=== PATIENT | female | born 1980 | race Caucasian/White ===

== ENCOUNTER → 2020-08-13 10:18 | Outpatient (CLI) | payer OTHER, SELFPAY ==
[2020-08-12 12:33] VITALS: BMI 25.6
== END ==
LOC: MTDU 10:18
PROVIDERS: Referring Provider Physician Assistant; Visit Provider Physician Assistant
DX: J02.9 Acute pharyngitis, unspecified (principal); R05 Cough; R06.02 Shortness of breath; R51.9 Headache, unspecified; R68.83 Chills (without fever); M79.10 Myalgia, unspecified site; R53.83 Other fatigue; Z20.828 Contact with and (suspected) exposure to other viral communicable diseases
CPT/HCPCS: 87635; C9803; U0003

== ENCOUNTER 2025-08-17 15:03 | Emergency (ER) | payer OTHER, SELFPAY ==
[2025-08-17 15:04] VITALS: BP 141/120; PULSE 83; RESP 16; TEMP 37.1; O2SAT 94; BMI 24.3
--- NOTE | 2025-08-17 15:26 | EDS_ITS ---
HPI History of Present Illness Chief Complaint: Bite Narrative Narrative: Patient is a 45-year-old female presenting to the emergency department for cat bite. Patient states that Wednesday evening a "community cat" that sleeps in her bed when it's cold was playing and bit her left index finger. She states that the cat is UTD on vaccinations. She states last night she went to an where they started her on Augmentin and updated her tetanus. She states she has had chills and intermittent nausea. She denies fevers. Denies any other injuries. She states she has taken 3 doses of Augmentin. They halie a line around the area of erythema last night and since then it has went slightly outside the lines which prompted her to return. Xray was ordered outpatient and she had this done prior to her arrival to the ED today. [facility] Medical History (Updated 08/17/25 @ 16:[address] Yun Daugherty MD) Presence of bilateral breast implant HTN (hypertension) Home Medications Medication Instructions Recorded Last Taken Type NK 08/12/20 Unknown History Allergy/AdvReac Type Severity Reaction Status Date / Time No Known Allergies Allergy Verified 08/17/25 15:09 Surgical History (Updated 08/17/25 @ 15:38 by Felix Russell) History of partial hysterectomy Social History Smoking Status: Current every day smoker tobacco type: cigarettes ROS ROS ED ROS Narrative see HPI EXAM Physical Exam Narrative Exam Narrative: Vital signs: Reviewed General: Alert and orientedx3. No acute distress. Nontoxic appearing. HEENT: Head is normocephalic and atraumatic, sinuses nontender, pupils equal round and reactive. Nares are patent. Oropharynx and throat exams normal. Neck: Supple without lymphadenopathy nontender Cardiovascular: Regular rate and rhythm, no murmurs. No rubs or gallops. Normal S1 and S2 Respiratory: Clear to auscultation bilaterally. No wheezes, rales, rhonchi Chest: No tracking of the erythema up into the axillary or chest wall. Abdominal: Soft and nontender. Normal bowel sounds. No guarding or rebound. Nonsurgical abdomen Extremities: No bruising. Normal range of motion. Normal sensation. Skin: There is 1 cm circular wound of erythema and small amount of purulence to the dorsal ulnar portion of the left index finger towards the base of the finger. No fluctuance of the wound. There is no tenderness to palpation of the flexor tendon. Patient is able to fully extend and flex the left index finger. No significant swelling of the finger to suggest flexor tenosynovitis. There is tracking of the erythema and warmth up from the dorsal radial portion of the left hand up to the mid inner upper arm. There is about 1 cm of erythema outside of the marked lines that were marked yesterday evening at . The rest of the physical exam is unremarkable Const Vital Signs: 08/17/25 15:04 08/17/25 16:08 08/17/25 16:37 Temperature 98.7 F 98.2 F 98.2 F Temperature Source Oral Oral Pulse Rate 83 72 70 Respiratory Rate 16 14 14 Blood Pressure 141/120 H 126/86 H 126/67 H Blood Pressure Mean 127 99 86 Pulse Ox 94 91 100 Oxygen Delivery Method Room Air MDM MDM MDM Narrative Medical decision making narrative: Patient is a 45-year-old female presenting to the emergency department for a cat bite 2 days ago. Patient was seen and examined. Vitals are stable. Patient resting bed comfortably no acute distress. Patient's tetanus was updated last evening. She has only been on 24 hours of antibiotics. Would not consider this failure of outpatient treatment at this time. She has no signs of flexor tenosynovitis. Negative [place] signs. X-ray was reviewed from earlier today and shows no foreign body or fracture. Radiology read with soft tissue swelling. No radiopaque foreign body is seen. Patient given IV bolus of Unasyn here. Lab work obtained. The patient is nontoxic appearing. Do not think she is septic. CBC with no leukocytosis and stable. BMP with no significant abnormalities. Lactate within normal limits. Patient was reevaluated about 1.5 hours from arrival. Area of erythema has not extended outside the pen lines any further. Patient updated on the negative labs. Explained that cat bites can progress fairly quickly and using shared decision making patient does feel comfortable going home, states this is what she prefers. She has only been on 24 hours of abx, I do not think she has failed outpatient therapy at this time. Patient was given strict return precautions if she develops any worsening of the erythema outside the lines, fever, chills, nausea, vomiting, feeling unwell or swelling or difficulty moving her finger. Patient is agreeable with the plan. Patient discharged from the Emergency Department. I do not feel that the patient's evaluation reveals any acute reason for admission at this time. I instructed them to either follow-up with their primary care physician or promptly return to the Emergency Department for reevaluation should symptoms worsen or new symptoms develop. I explained what symptoms would indicate the need to return to the emergency department. Shared decision making was used. The patient voiced understanding of the treatment plan and is agreeable with it. Clinical impression Cat bite Cellulitis History & Record Review Discussion w/independent historian: Patient Lab Data Attestation: I reviewed the patient's lab results. Labs: Laboratory Results - last 24 hr 08/17/25 15:32 WBC 8.5 RBC 4.17 L Hgb 13.1 Hct 38.4 MCV 92.1 MCH 31.4 MCHC 34.1 RDW Std Deviation 44.6 H RDW Coeff of Hanna 13.1 Plt Count 360 MPV 9.7 Immature Gran % (Auto) 0.200 Neut % (Auto) 59.0 Lymph % (Auto) 26.9 [place] % (Auto) 11.5 H Eos % (Auto) 1.6 Baso % (Auto) 0.8 Absolute Neuts (auto) 5.0 Absolute Lymphs (auto) 2.30 Nucleated RBC % 0 Sodium 137 Potassium 4.3 Chloride 102 Carbon Dioxide 26.1 Anion Gap 9 BUN 11 Creatinine 0.60 L Estim Creat Clear Calc 103.32 Est GFR (MDRD) Non-Af 113 BUN/Creatinine Ratio 18.1 Glucose 85 Lactic Acid < 1.0 Calcium 9.8 Discharge Plan Triage Chief Complaint: Bite ED Provider: Yun Daugherty Dx/Rx/DC Orders Clinical Impression: Cat bite, Cellulitis Instructions: Cellulitis Dc, ED Cat Bite Prescriptions: No Action NK Primary Care Provider: Care Physician,No Primary Referrals: Miguel Rios MD [Med Staff - Active Staff, Family Practice] - As soon as possible Care Physician,No Primary [Primary Care Provider, Medical] Activity Restrictions/Additional Instructions: As discussed, take your antibiotics as prescribed. If the redness extends outside of the lines that were drawn you need to return to the emergency department. If you develop fever, chills, nausea, vomiting, feeling unwell you need to return. If you develop any significant swelling of your finger or difficulty bending or extending your finger you need to return as discussed as well. Your evaluation in the Emergency Department did not reveal any acute reason for admission. However, I want to emphasize that you may be early in the course of a disease process or illness even if it is not present. For this reason you should follow-up within 24 hours for reevaluation with either your primary care physician or if necessary back here in the Emergency Department. You should return to the Emergency Department immediately if your symptoms worsen or new symptoms develop. Print Language: Amharic Disposition Disposition: Home, Self Care
[2025-08-17] MEDS: Ampicillin/Sulbactam 3 GM in 0.9% Normal Saline (100mL MB+) 100 ML IV (15:53)
[2025-08-17 15:57] LABS: Anion Gap 9 (5-15); BUN 11 mg/dL (4-19); BUN/Creat Ratio 18.1 RATIO (10-20); Calcium,Total 9.8 mg/dL (7.6-11.0); Carbon Dioxide 26.1 mmol/L (21.0-32.0); Chloride 102 mmol/L (98-108); Estimated Creatinine Clearance 103.32 ml/min (50-250); Glucose 85 mg/dL (70-99); Potassium 4.3 mmol/L (3.3-5.1)
[2025-08-17 16:03] LABS: Hematocrit 38.4 % (37-47); Hemoglobin 13.1 g/dL (12.0-15.0); Immature Granulocytes Count 0.020 X10^3/uL (0.0-0.0); Mean Corp Hgb Conc 34.1 g/dL (32-36); Mean Corpuscular Volume 92.1 fL (81-99); Mean Platelet Vol. 9.7 fl (6.2-12.0); NRBC Flagged by Analyzer 0 % (0-5); Platelet Count 360 K/mm3 (150-450); RBC Distribution Width CV 13.1 % (11.6-14.6); RBC Distribution Width SD 44.6 fl (35.1-43.9); Red Blood Count 4.17 M/mm3 (4.2-5.4); White Blood Count 8.5 K/mm3 (4.4-11.0)
[2025-08-17 16:08] VITALS: BP 126/86; PULSE 72; RESP 14; TEMP 36.8; O2SAT 91
[2025-08-17 16:37] VITALS: BP 126/67; PULSE 70; RESP 14; TEMP 36.8; O2SAT 100
--- OUTSIDE RECORDS SUMMARY | 2025-08-17 17:50 | XMS RPT_ITS | CCD ---
Author Organization [facility] Inform ion Partnership [facility] Care Team Providers Care Linux Security Administrator Name Role Phone RULA BOUDREAUX, ABENA Primary Care Physician MENDEZ REYEZ, DR TITUS Monroy Attending Unavailabl e ABENA TERAN Primary Care Unavail able ABENA TERAN Primary Care Unavail able KB NUNEZ DO Attending Unavailable LOUIS CARRIZALES Admitting Unavaila ble Medications Current Medications Medication Drug Class(es) Dates Sig (Normalized) Sig (Original) Azithromycin 5 Day Dose Pack 250 mg oral tablet (2 sources) Start: 09-04-2024 End: 09-09-2024 Azithromycin 5 Day Dose Pack 250 mg oral tablet Take two (2) tablets day 1-then one (1) tablet, Oral, Daily, X 5 day(s), # 6 tab(s), 0 Refill(s), 09/09/24 3:11:00 PM EST, 66.5 Start Date: 09/04/24 Stop Date: 09/09/24 Status: Ordered Start: 05-26-2024 End: 05-31-2024 take 1 tablet by mouth once daily Azithromycin 5 Day Dose Pack 250 mg oral tablet 1 dose, Oral, Daily, X 5 day(s), # 6 tab(s), 0 Refill(s), 05/31/24 1:55:00 PM EDT, 64 Start Date: 05/26/24 Stop Date: 05/31/24 Status: Ordered buprenorphine 8 mg / naloxone 2 mg sublingual film (1 source) Partial Opioid Agonist, Opioid Antagonist Start: 09-04-2024 buprenorphine-naloxo ne 8 mg-2 mg sublingual film dissolve 1 and 1/2 FILMS under the tongue once daily for 30 DAYS Start Date: 09/04/24 Status: Ordered 12 hr guaiFENesin 600 mg extended release oral tablet (1 source) Start: 05-26-2024 End: 06-02-2024 Mucinex 600 mg oral tablet, extended release Dose : 600 mg = 1 tab(s), Oral, q12h, X 7 day(s), # 14 tab(s), 0 Refill(s), 06/02/24 1:55:00 PM EDT Start Date: 05/26/24 Stop Date: 06/02/24 Status: Ordered Problems Problem Classification Problem Date Documented Da te Episodic/Chronic Chronic obstructive pulmonary disease and bronchiectasis (1 source) Bronchitis; Translations: [Bronchitis, not specified as acute or chronic] Onset: 05-26-2024 Episodic Residual codes; unclassified (1 source) Tobacco user; Translations: [Tobacco use] Onset: 09-05-2024 Episodic Respiratory failure; insufficiency; arrest (adult) (1 source) Acute respiratory failure; Translations: [Acute respiratory failure with hypoxia] Onset: 09-05-2024 Episodic Results Test Name Value Interpretation Reference Range [facility] 09-11-2024 Mycoplasma IgG Negative Normal [facility] Comment on above: Result Comment: INTE RPRETATION OF MYCOPLASMA IgG BY EIA: Negative: No detectable M. pneumoniae IgG antibody. Positive: Mycoplasma pneumoniae IgG antibody Detected. Equivocal: Equivocal for IgG antibodies to Mycoplasma pneumoniae. Suggest repeat testing in 10-14 days. Performed By: #### M YCO ####[address] 09-06-2024 Mycoplasma IgM Negative Normal [facility] Comment on above: Result Comment: INTE RPRETATION OF MYCOPLASMA IgM: Negative: IgM to M. pneumoniae Absent, or at levels below the assay limit of detection. Positive: IgM to M. pneumoniae Present. Invalid: Test results are invalid due to invalid internal control. Assay was performed in duplicate. Repeat testing is suggested if clinically indicated. Performed By: #### M YCO ####[address] [address] RESCVIDon 09-05-2024 Adenovirus Not detected Normal Not Detected [facility] Comment on above: Performed By: #### R ESCVID #### [address] [address] Bordetella Parapertussis Not detected Normal Not Detected [facility] Comment on above: Performed By: #### R ESCVID #### [facility] [address] [place] [address] Bordetella Pertussis Not detected Normal Not Detected [facility] Comment on above: Performed By: #### R ESCVID #### [facility] [address] [place] [address] Chlamydophila pneumoniae Not detected Normal Not Detected [facility] Comment on above: Performed By: #### R ESCVID #### [facility] [address] [place] [address] Coronavirus 229E (Not COVID-19) Not detected Normal Not Detected [facility] Comment on above: Performed By: #### R ESCVID #### [facility] [address] [place] [phone] Coronavirus HKU1 (Not COVID-19) Not detected Normal Not Detected [facility] Comment on above: Performed By: #### R ESCVID #### [facility] [address] [place] [address] Coronavirus NL63 (Not COVID-19) Not detected Normal Not Detected [facility] Comment on above: Performed By: #### R ESCVID #### [facility] [address] [place] [address] Coronavirus OC43 (Not COVID-19) Not detected Normal Not Detected [facility] Comment on above: Performed By: #### R ESCVID #### [facility] [address] [place] [address] Human Metapneumovirus Not detected Normal Not Detected [facility] Comment on above: Performed By: #### R ESCVID #### [facility] [address] [place] [address] Influenza A Not detected Normal Not Detected [facility] Comment on above: Performed By: #### R ESCVID #### [facility] [address] [place] [address] Influenza B Not detected Normal Not Detected [facility] Comment on above: Performed By: #### R ESCVID #### [facility] [address] [place] [address] Mycoplasma pneumoniae Not detected Normal Not Detected [facility] Comment on above: Performed By: #### R ESCVID #### [facility] [address] [place] [address] Parainfluenza 1 Not detected Normal Not Detected [facility] Comment on above: Performed By: #### R ESCVID #### [facility] [address] [place], [place] [id number] Parainfluenza 2 Not detected Normal Not Detected [facility] Comment on above: Performed By: #### R ESCVID #### [facility] [address] [place] [address] Parainfluenza 3 Not detected Normal Not Detected [facility] Comment on above: Performed By: #### R ESCVID #### [facility] [address] [place] [address] Parainfluenza 4 Not detected Normal Not Detected [facility] Comment on above: Performed By: #### R ESCVID #### [facility] [address] [place] [address] Respiratory Syncytial Virus Not detected Normal Not Detected [facility] Comment on above: Performed By: #### R ESCVID #### [facility] [address] [place], [place] [id number] Rhinovirus/Enteroviru s Not detected Normal Not Detected [facility] Comment on above: Performed By: #### R ESCVID #### [facility] [address] [place], [place] [id number] SARS-CoV-2 (COVID-19) RNA AYESHA+probe Ql (Unsp spec) Not detected Normal Not Detected [facility] Comment on above: Result Comment: This assay has been validated in the [facility] for use with nasopharyngeal specimens in [facility]. If a non-validated specimen or test collection method was used, please interpret the results with caution, especially if the test result is negative. A positive test result for COVID-19 indicates that RNA from SARS-CoV-2 was detected, and the patient is infected with the virus and presumed to be contagious. Laboratory test results should always be considered in the context of clinical observations and epidemiological data in making a final diagnosis and patient management decisions. Patient management should follow current CDC guidelines. A negative test result for this test means that SARS-CoV-2 RNA was not present in the specimen above the limit of detection. However, a negative result does not rule out COVID-19 and should not be used as the sole basis for treatment or patient management decisions. A negative result does not exclude the possibility of COVID-19. When diagnostic testing is negative, the possibility of a false negative result should be considered in the context of a patient's recent exposures and the presence of clinical signs and symptoms consistent with COVID-19. The possibility of a false negative result should especially be considered if the patient?s recent exposures or clinical presentation indicate that COVID-19 is likely, and diagnostic tests for other causes of illness (e.g., other respiratory illness) are negative. If COVID-19 is still suspected based on exposure history together with other clinical findings, re-testing should be considered by healthcare providers in consultation with public health authorities. Performed By: #### R ESCVID #### [address] [address] .Auto Diffon 09-04-2024 Basophil, Absolute 0.1 10 3/mcL Normal 0.0-0.2 [facility] Comment on above: Performed By: #### M ORPH, CBC, MDW, GFR, BMP, LAC, ADIFF, ANEU #### [address] [address] Basophils/100 WBC (Bld) 0.8 % Normal 0.0-2.5 [facility] Comment on above: Performed By: #### M ORPH, CBC, MDW, GFR, BMP, LAC, ADIFF, ANEU #### [address] [address] Eosinophil, Absolute 0.1 10 3/mcL Normal 0.0-0.7 [facility] Comment on above: Performed By: #### M ORPH, CBC, MDW, GFR, BMP, LAC, ADIFF, ANEU #### [address] [address] Eosinophils/100 WBC (Bld) 0.4 % Normal 0.0-7.0 [facility] Comment on above: Performed By: #### M ORPH, CBC, MDW, GFR, BMP, LAC, ADIFF, ANEU #### [address] [address] Lymphocyte, Absolute 2.0 10 3/mcL Normal 0.9-4.3 [facility] Comment on above: Performed By: #### M ORPH, CBC, MDW, GFR, BMP, LAC, ADIFF, ANEU #### [address] [address] Lymphocytes/100 WBC (Bld) 12.3 % Low 20.0-40.0 [facility] Comment on above: Performed By: #### M ORPH, CBC, MDW, GFR, BMP, LAC, ADIFF, ANEU #### [address] [address] Monocyte, Absolute 1.6 10 3/mcL High 0.1-1.4 [facility] Comment on above: Performed By: #### M ORPH, CBC, MDW, GFR, BMP, LAC, ADIFF, ANEU #### [address] [address] Monocytes/100 WBC (Bld) 9.9 % Normal 2.0-13.0 [facility] Comment on above: Performed By: #### M ORPH, CBC, MDW, GFR, BMP, LAC, ADIFF, ANEU #### [address] [address] Neutrophils/100 WBC (Bld) 76.6 % High 50.0-75.0 [facility] Comment on above: Performed By: #### M ORPH, CBC, MDW, GFR, BMP, LAC, ADIFF, ANEU #### [address] [address] .GFRon 09-04-2024 GFR 121 ml/min/1.73sqm Normal [facility] Comment on above: Result Comment: GFR Population mean for , Non- Americans Ages 20-29 = 116 mL/min/1.73 sq.m. Ages 30-39 = 107 mL/min/1.73 sq.m. Ages 40-49 = 99 mL/min/1.73 sq.m. Ages 50-59 = 93 mL/min/1.73 sq.m. Ages 60-69 = 85 mL/min/1.73 sq.m. Ages 70+ = 75 mL/min/1.73 sq.m. Chronic Kidney Disease: Less than 60 mL/min/1.73 square meters End Stage Renal Disease: Less than 15 mL/min/1.73 square meters Performed By: #### M ORPH, CBC, MDW, GFR, BMP, LAC, ADIFF, ANEU #### [place] [address] [place], [place] [address] GFR Non- 99 ml/min/1.73sqm Normal [facility] Comment on above: Result Comment: GFR Population mean for , Non- Americans Ages 20-29 = 116 mL/min/1.73 sq.m. Ages 30-39 = 107 mL/min/1.73 sq.m. Ages 40-49 = 99 mL/min/1.73 sq.m. Ages 50-59 = 93 mL/min/1.73 sq.m. Ages 60-69 = 85 mL/min/1.73 sq.m. Ages 70+ = 75 mL/min/1.73 sq.m. Chronic Kidney Disease: Less than 60 mL/min/1.73 square meters End Stage Renal Disease: Less than 15 mL/min/1.73 square meters Performed By: #### M ORPH, CBC, MDW, GFR, BMP, LAC, ADIFF, ANEU #### [address] [place] [place], [place] [address] .MDWon 09-04-2024 Monocyte Distribution Width 22.11 High 0.00-20.00 [facility] Comment on above: Result Comment: For adults in ED, MDW>20.0 may be associated with a higher risk of sepsis during the first 12hrs of hospital admission The predictive value of MDW for identifying sepsis in patients with hematological abnormalities has not been established Performed By: #### M ORPH, CBC, MDW, GFR, BMP, LAC, ADIFF, ANEU ####[address] [address] .Morphon 09-04-2024 Platelet Estimate Normal Normal [facility] Comment on above: Performed By: #### M ORPH, CBC, MDW, GFR, BMP, LAC, ADIFF, ANEU #### [place] [address] RBC morphology finding Nom (Bld) Normal Normal [facility] Comment on above: Performed By: #### M ORPH, CBC, MDW, GFR, BMP, LAC, ADIFF, ANEU #### [place] [address] .NEUABSon 09-04-2024 Neutrophil, Absolute 12.3 10 3/mcL High 2.3-8.1 [facility] Comment on above: Performed By: #### M ORPH, CBC, MDW, GFR, BMP, LAC, ADIFF, ANEU ####[place] [id number] BMPon 09-04-2024 BUN/Creatinine Ratio 15 ratio Normal 7-27 [facility] Comment on above: Performed By: #### M ORPH, CBC, MDW, GFR, BMP, LAC, ADIFF, ANEU #### [address] [address] Calcium [Mass/Vol] 9.6 mg/dL Normal 8.4-10.2 [facility] Comment on above: Performed By: #### M ORPH, CBC, MDW, GFR, BMP, LAC, ADIFF, ANEU #### [place] [phone] Chloride [Moles/Vol] 95 mmol/L Low 98-107 [facility] Comment on above: Performed By: #### M ORPH, CBC, MDW, GFR, BMP, LAC, ADIFF, ANEU #### [place] [phone] CO2 [Moles/Vol] 28 mmol/L Normal 22-29 [facility] Comment on above: Performed By: #### M ORPH, CBC, MDW, GFR, BMP, LAC, ADIFF, ANEU #### [address] [address] Creatinine [Mass/Vol] 0.65 mg/dL Normal 0.55-1.02 [facility] Comment on above: Result Comment: Test ing performed on Siemens Dimension EXL analyzer using a modified kinetic Silvia technique. Performed By: #### M ORPH, CBC, MDW, GFR, BMP, LAC, ADIFF, ANEU #### [address] [address] Electrolyte Balance 14.0 mEq/L Normal 4.0-15.0 [facility] Comment on above: Performed By: #### M ORPH, CBC, MDW, GFR, BMP, LAC, ADIFF, ANEU #### [place] [address] Glucose [Mass/Vol] 110 mg/dL High 70-105 [facility] Comment on above: Performed By: #### M ORPH, CBC, MDW, GFR, BMP, LAC, ADIFF, ANEU #### [address] [address] Potassium [Moles/Vol] 3.8 mmol/L Normal 3.5-5.1 [facility] Comment on above: Performed By: #### M ORPH, CBC, MDW, GFR, BMP, LAC, ADIFF, ANEU #### [address] [address] Sodium [Moles/Vol] 137 mmol/L Normal 136-145 [facility] Comment on above: Performed By: #### M ORPH, CBC, MDW, GFR, BMP, LAC, ADIFF, ANEU #### [place] [address] Urea nitrogen [Mass/Vol] 10 mg/dL Normal 7-18 [facility] Comment on above: Performed By: #### M ORPH, CBC, MDW, GFR, BMP, LAC, ADIFF, ANEU #### [address] [address] CBCon 09-04-2024 Erythrocyte distribution width (RBC) [Ratio] 13.6 % Normal 11.5-15.5 [facility] Comment on above: Performed By: #### M ORPH, CBC, MDW, GFR, BMP, LAC, ADIFF, ANEU #### [place] [address] Hematocrit (Bld) [Volume fraction] 40.2 % Normal 34.0-46.0 [facility] Comment on above: Performed By: #### M ORPH, CBC, MDW, GFR, BMP, LAC, ADIFF, ANEU #### [place] [address] Hgb 13.4 G/dL Normal 12.0-16.0 [facility] Comment on above: Performed By: #### M ORPH, CBC, MDW, GFR, BMP, LAC, ADIFF, ANEU #### [place] [address] MCH (RBC) [Entitic mass] 31.2 pg Normal 27.0-33.0 [facility] Comment on above: Performed By: #### M ORPH, CBC, MDW, GFR, BMP, LAC, ADIFF, ANEU #### [place] [address] MCHC 33.4 G/dL Normal 32.0-36.0 [facility] Comment on above: Performed By: #### M ORPH, CBC, MDW, GFR, BMP, LAC, ADIFF, ANEU #### [place] [address] MCV (RBC) [Entitic vol] 93.4 fL Normal 80.0-99.0 [facility] Comment on above: Performed By: #### M ORPH, CBC, MDW, GFR, BMP, LAC, ADIFF, ANEU #### [place] [address] Platelet 417 10 3/mcL Normal 150-450 [facility] Comment on above: Performed By: #### M ORPH, CBC, MDW, GFR, BMP, LAC, ADIFF, ANEU #### [place] [address] Platelet mean volume (Bld) [Entitic vol] 7.9 fL Normal 6.6-10.5 [facility] Comment on above: Performed By: #### M ORPH, CBC, MDW, GFR, BMP, LAC, ADIFF, ANEU #### [place] [address] RBC 4.30 10 6/mcL Normal 4.10-5.30 [facility] Comment on above: Performed By: #### M ORPH, CBC, MDW, GFR, BMP, LAC, ADIFF, ANEU #### [place] [address] WBC 16.0 10 3/mcL High 4.5-10.8 [facility] Comment on above: Performed By: #### M ORPH, CBC, MDW, GFR, BMP, LAC, ADIFF, ANEU #### [place] [address] CVFLURVon 09-04-2024 FLU A PCR Negative Normal Negative [facility] Comment on above: Performed By: #### C VFLURV ####[place] [address] FLU B PCR Negative Normal Negative [facility] Comment on above: Performed By: #### C VFLURV ####[place] [address] RSV PCR Negative Normal Negative [facility] Comment on above: Performed By: #### C VFLURV ####[place] [address] SARS-CoV-2 (COVID-19) RNA AYESHA+probe Ql (Unsp spec) Negative Normal Negative [facility] Comment on above: Result Comment: Resu lts from the Xpert Xpress CoV-2/Flu/RSV plus test should be correlated with the clinical history, epidemiological data, and other data available to the clinical evaluating the patient. Performance of the Xpert Xpress CoV-2/Flu/RSV plus test has only been established in nasopharyngeal swab specimen. Erroneous test results might occur from improper specimen collection, failure to follow the recommended sample collection, handling and storage procedures, technical error, or sample mix-up. False negative results may occur if a virus is present at a level below the analytical limit of detection. Viral nucleic acid may persist in vivo, independent of virus viability. Detection of analyte target(s) does not imply that the corresponding virus(es) are infectious or are the causative agents for clinical symptoms. Recent patient exposure to FluMist or other live attenuated influenza vaccines may cause inaccurate positive results. Performed By: #### C VFLURV ####[id number] [place], [place] [address] LABORATORYOrdered By: Luke Aldridge on 09-04-2024 Adenovirus DNA AYESHA+non-probe Ql (Nph) Not Detected *NA* (09/04/24 5:32 PM) Invalid Interpretation Code Not Detected AH Auto Viro/Sero SS B. parapertussis [id number] DNA AYESHA+non-probe Ql (Nph) Not Detected *NA* (09/04/24 5:32 PM) Invalid Interpretation Code Not Detected AH Auto Viro/Sero SS B. pertussis toxin promoter region AYESHA+non-probe Ql (Nph) Not Detected *NA* (09/04/24 5:32 PM) Invalid Interpretation Code Not Detected AH Auto Viro/Sero SS C. pneumoniae DNA AYESHA+non-probe Ql (Nph) Not Detected *NA* (09/04/24 5:32 PM) Invalid Interpretation Code Not Detected AH Auto Viro/Sero SS FLUAV RNA AYESHA+non-probe Ql (Nph) Not Detected *NA* (09/04/24 5:32 PM) Invalid Interpretation Code Not Detected AH Auto Viro/Sero SS FLUBV RNA AYESHA+non-probe Ql (Nph) Not Detected *NA* (09/04/24 5:32 PM) Invalid Interpretation Code Not Detected AH Auto Viro/Sero SS hMPV RNA AYESHA+non-probe Ql (Nph) Not Detected *NA* (09/04/24 5:32 PM) Invalid Interpretation Code Not Detected AH Auto Viro/Sero SS M. pneumoniae DNA AYESHA+non-probe Ql (Nph) Not Detected *NA* (09/04/24 5:32 PM) Invalid Interpretation Code Not Detected AH Auto Viro/Sero SS Parainfluenza virus 1 RNA AYESHA+non-probe Ql (Nph) Not Detected *NA* (09/04/24 5:32 PM) Invalid Interpretation Code Not Detected AH Auto Viro/Sero SS Parainfluenza virus 2 RNA AYESHA+non-probe Ql (Nph) Not Detected *NA* (09/04/24 5:32 PM) Invalid Interpretation Code Not Detected AH Auto Viro/Sero SS Parainfluenza virus 3 RNA AYESHA+non-probe Ql (Nph) Not Detected *NA* (09/04/24 5:32 PM) Invalid Interpretation Code Not Detected AH Auto Viro/Sero SS Parainfluenza virus 4 RNA AYESHA+non-probe Ql (Nph) Not Detected *NA* (09/04/24 5:32 PM) Invalid Interpretation Code Not Detected AH Auto Viro/Sero SS Rhinovirus+Enteroviru s RNA AYESHA+non-probe Ql (Nph) Not Detected *NA* (09/04/24 5:32 PM) Invalid Interpretation Code Not Detected AH Auto Viro/Sero SS RSV RNA AYESHA+non-probe Ql (Nph) Not Detected *NA* (09/04/24 5:32 PM) Invalid Interpretation Code Not Detected AH Auto Viro/Sero SS SARS-CoV-2 (COVID-19) RNA AYESHA+probe Ql (Resp) Not Detected 3 *NA* (09/04/24 5:32 PM) Invalid Interpretation Code Not Detected AH Auto Viro/Sero SS Comment on above: Interpretive Data: T his assay has been validated in the [facility] for use with nasopharyngeal specimens in [facility]. If a non-validated specimen or test collection method was used, please interpret the results with caution, especially if the test result is negative. A positive test result for COVID-19 indicates that RNA from SARS-CoV-2 was detected, and the patient is infected with the virus and presumed to be contagious. Laboratory test results should always be considered in the context of clinical observations and epidemiological data in making a final diagnosis and patient management decisions. Patient management should follow current CDC guidelines. A negative test result for this test means that SARS-CoV-2 RNA was not present in the specimen above the limit of detection. However, a negative result does not rule out COVID-19 and should not be used as the sole basis for treatment or patient management decisions. A negative result does not exclude the possibility of COVID-19. When diagnostic testing is negative, the possibility of a false negative result should be considered in the context of a patient's recent exposures and the presence of clinical signs and symptoms consistent with COVID-19. The possibility of a false negative result should especially be considered if the patient s recent exposures or clinical presentation indicate that COVID-19 is likely, and diagnostic tests for other causes of illness (e.g., other respiratory illness) are negative. If COVID-19 is still suspected based on exposure history together with other clinical findings, re-testing should be considered by healthcare providers in consultation with public health authorities. LABORATORYOrdered By: SYSTEM SYSTEM on 09-04-2024 Basophils (Bld) [#/Vol] 0.1 103/mcL Normal 0.0 - 0.2 10^3/mcL AO Workflow SS Basophils/100 WBC (Bld) 0.8 % Normal 0.0 - 2.5 % AO Workflow SS Calcium [Mass/Vol] 9.6 mg/dL Normal 8.4 - 10. 2 mg/dL AO ADM SS Chloride [Moles/Vol] 95 mmol/L Low 98 - 10 7 mmol/L AO ADM SS CO2 [Moles/Vol] 28 mmol/L Normal 22 - 29 mmol/L AO ADM SS Creatinine [Mass/Vol] 0.65 mg/dL Normal 0.55 - 1.02 mg/dL AO ADM SS Comment on above: Interpretive Data: T esting performed on Siemens Dimension EXL analyzer using a modified kinetic Silvia technique. Electrolyte Balance 14.0 mEq/L Normal 4.0 - 15 .0 mEq/L AO ADM SS Eosinophil, Absolute 0.1 103/mcL Normal 0.0 - 0 .7 10^3/mcL AO Workflow SS Eosinophils/100 WBC (Bld) 0.4 % Normal 0.0 - 7.0 % AO Workflow SS Erythrocyte distribution width (RBC) [Ratio] 13.6 % Normal 11.5 - 15.5 % AO Workflow SS GFR/1.73 sq M.predicted among blacks MDRD (S/P/Bld) [Vol rate/Area] 121 ml/min/1.73sqm Invalid Interpretation Code AO Chemistry S Comment on above: Interpretive Data: GFR Population mean for , Non- Americans Ages 20-29 = 116 mL/min/1.73 sq.m. Ages 30-39 = 107 mL/min/1.73 sq.m. Ages 40-49 = 99 mL/min/1.73 sq.m. Ages 50-59 = 93 mL/min/1.73 sq.m. Ages 60-69 = 85 mL/min/1.73 sq.m. Ages 70+ = 75 mL/min/1.73 sq.m. Chronic Kidney Disease: Less than 60 mL/min/1.73 square meters End Stage Renal Disease: Less than 15 mL/min/1.73 square meters GFR/1.73 sq M.predicted among non-blacks MDRD (S/P/Bld) [Vol rate/Area] 99 ml/min/1.73sqm Invalid Interpretation Code AO Chemistry S Comment on above: Interpretive Data: GFR Population mean for , Non- Americans Ages 20-29 = 116 mL/min/1.73 sq.m. Ages 30-39 = 107 mL/min/1.73 sq.m. Ages 40-49 = 99 mL/min/1.73 sq.m. Ages 50-59 = 93 mL/min/1.73 sq.m. Ages 60-69 = 85 mL/min/1.73 sq.m. Ages 70+ = 75 mL/min/1.73 sq.m. Chronic Kidney Disease: Less than 60 mL/min/1.73 square meters End Stage Renal Disease: Less than 15 mL/min/1.73 square meters Glucose [Mass/Vol] 110 mg/dL High 70 - 105 mg/dL AO ADM SS Hematocrit (Bld) [Volume fraction] 40.2 % Normal 34.0 - 46.0 % AO Workflow SS Hemoglobin (Bld) [Mass/Vol] 13.4 G/dL Normal 12.0 - 16.0 G/dL AO Workflow SS Lactate [Moles/Vol] 0.8 mmol/L Normal 0.4 - 2. 0 mmol/L AO ADM SS Lymphocytes (Bld) [#/Vol] 2.0 103/mcL Normal 0.9 - 4.3 10^3/mcL AO Workflow SS Lymphocytes/100 WBC (Bld) 12.3 % Low 20.0 - 40.0 % AO Workflow SS MCH (RBC) [Entitic mass] 31.2 pg Normal 27.0 - 33.0 pg AO Workflow SS MCHC 33.4 G/dL Normal 32.0 - 36.0 G/dL AO Workflow SS MCV (RBC) [Entitic vol] 93.4 fL Normal 80.0 - 99.0 fL AO Workflow SS Monocyte distribution width Auto (Bld) [Entitic vol] 22.11 1 High 0.00 - 20.00 AO Workflow SS Comment on above: Result Comment: For adults in ED, MDW>20.0 may be associated with a higher risk of sepsis during the first 12hrs of hospital admission The predictive value of MDW for identifying sepsis in patients with hematological abnormalities has not been established Monocytes (Bld) [#/Vol] 1.6 103/mcL High 0.1 - 1.4 10^3/mcL AO Workflow SS Monocytes/100 WBC (Bld) 9.9 % Normal 2.0 - 13.0 % AO Workflow SS Neutrophils (Bld) [#/Vol] 12.3 103/mcL High 2.3 - 8.1 10^3/mcL AO Workflow SS Neutrophils/100 WBC (Bld) 76.6 % High 50.0 - 75.0 % AO Workflow SS Platelet mean volume (Bld) [Entitic vol] 7.9 fL Normal 6.6 - 10.5 fL AO Workflow SS Platelets (Bld) [#/Vol] 417 103/mcL Normal 150 - 450 10^3/mcL AO Workflow SS Platelets LM Ql (Bld) Normal *NA* (09/04/24 4:30 PM) Invalid Interpretation Code AO Workflow SS Potassium [Moles/Vol] 3.8 mmol/L Normal 3.5 - 5.1 mmol/L AO ADM SS RBC (Bld) [#/Vol] 4.30 106/mcL Normal 4.10 - 5.3 0 10^6/mcL AO Workflow SS RBC morphology finding Nom (Bld) Normal *NA* (09/04/24 4:30 PM) Invalid Interpretation Code AO Workflow SS Sodium [Moles/Vol] 137 mmol/L Normal 136 - 145 mmol/L AO ADM SS Urea nitrogen [Mass/Vol] 10 mg/dL Normal 7 - 18 mg/dL AO ADM SS Urea nitrogen/Creatinine [Mass ratio] 15 ratio Normal 7 - 27 ratio AO ADM SS WBC (Bld) [#/Vol] 16.0 103/mcL High 4.5 - 10.8 10^3/mcL AO Workflow SS LABORATORYOrdered By: Ky Duran on 09-04-2024 FLUAV RNA AYESHA+probe Ql (Resp) Negative (09/04/24 2:08 PM) Normal Negative AO Auto Urine SS FLUBV RNA AYESHA+probe Ql (Resp) Negative (09/04/24 2:08 PM) Normal Negative AO Auto Urine SS RSV RNA AYESHA+probe Ql (Resp) Negative (09/04/24 2:08 PM) Normal Negative AO Auto Urine SS SARS-CoV-2 (COVID-19) RNA AYESHA+probe Ql (Resp) Negative 4 (09/04/24 2:08 PM) Normal Negative AO Auto Urine SS Comment on above: Interpretive Data: R esults from the Xpert Xpress CoV-2/Flu/RSV plus test should be correlated with the clinical history, epidemiological data, and other data available to the clinical evaluating the patient. Performance of the Xpert Xpress CoV-2/Flu/RSV plus test has only been established in nasopharyngeal swab specimen. Erroneous test results might occur from improper specimen collection, failure to follow the recommended sample collection, handling and storage procedures, technical error, or sample mix-up. False negative results may occur if a virus is present at a level below the analytical limit of detection. Viral nucleic acid may persist in vivo, independent of virus viability. Detection of analyte target(s) does not imply that the corresponding virus(es) are infectious or are the causative agents for clinical symptoms. Recent patient exposure to FluMist or other live attenuated influenza vaccines may cause inaccurate positive results. LACon 09-04-2024 Lactic Acid Lvl 0.8 mmol/L Normal 0.4-2.0 [facility] Comment on above: Performed By: #### M ORPH, CBC, MDW, GFR, BMP, LAC, ADIFF, ANEU #### [address] [id number] No Panel Informationon 09-04 Legionella Urine Ag Presumptive negative for L. pneumophila serogroup 1 antigen in urine, suggesting no recent or current infection. Legionnaire's disease cannot be ruled out since other serogroups and species may also cause disease. [facility] Streptococcus Pneumoniae Urine Antig Presumptive negative for pneumococcal pneumonia, suggesting no current or recent pneumococcal infection. Infection due to Strep pneumoniae cannot be ruled out since the antigen present in the sample may be below the detection limit of the test. [facility] Comment on above: This test has not be en evaluated on patients taking antibiotics for greater than 24 hours or on patients who have recently completed an antibiotic regimen. The accuracy of this test has not been proven in young children. XR CHEST 2 VIEWSon XR CHEST 2 VIEWS ORIGINAL EXAMINATION: TWO XRAY VIEWS OF THE CHEST09/04/2024 2:06 pm COMPARISON: None HISTORY: ORDERING SYSTEM PROVIDED HISTORY: Reason for Exam: cough FINDINGS: The heart size is normal. There is no pulmonary consolidation. No pneumothorax or pleural effusion. No aggressive osseous lesions identified.Spurring seen in the spine. IMPRESSION: No acute radiographic findings. Interpreted by: Davide Corbin MD Preliminary Report By: Davide Corbin MD Electronically signed By Davide Corbin MD Dictated Date: 09/04/2024 2:12:30 PM Prelim Date: 09/04/2024 2:13:13 PM Sign Date: 09/04/2024 2:13:13 PM Ordering Provider: BK Lind [facility] .Auto Diffon 05-26-2024 Basophil, Absolute 0.1 10 3/mcL Normal 0.0-0.2 [facility] ([place]) Comment on above: Performed By: #### M DW, PBNP, ANEU, ADIFF, CBC, BMP, TROPHS, GFR #### [facility] [address], [place] [address] Basophils/100 WBC (Bld) 0.9 % Normal 0.0-2.5 [facility] ([place]) Comment on above: Performed By: #### M DW, PBNP, ANEU, ADIFF, CBC, BMP, TROPHS, GFR #### [facility] [address], [place] [address] Eosinophil, Absolute 0.2 10 3/mcL Normal 0.0-0.4 [facility] ([place]) Comment on above: Performed By: #### M DW, PBNP, ANEU, ADIFF, CBC, BMP, TROPHS, GFR #### [address] [address] Eosinophils/100 WBC (Bld) 3.2 % Normal 0.0-7.0 [facility] ([place]) Comment on above: Performed By: #### M DW, PBNP, ANEU, ADIFF, CBC, BMP, TROPHS, GFR #### [address] [address] Lymphocyte, Absolute 2.1 10 3/mcL Normal 0.8-3.9 [facility] ([place]) Comment on above: Performed By: #### M DW, PBNP, ANEU, ADIFF, CBC, BMP, TROPHS, GFR #### [address] [address] Lymphocytes/100 WBC (Bld) 32.2 % Normal 10.0-50.0 [facility] ([place]) Comment on above: Performed By: #### M DW, PBNP, ANEU, ADIFF, CBC, BMP, TROPHS, GFR #### [address] [address] Monocyte, Absolute 0.9 10 3/mcL Normal 0.2-1.0 [facility] ([place]) Comment on above: Performed By: #### M DW, PBNP, ANEU, ADIFF, CBC, BMP, TROPHS, GFR #### [address] [address] Monocytes/100 WBC (Bld) 13.5 % High 1.7-13.0 [facility] ([place]) Comment on above: Performed By: #### M DW, PBNP, ANEU, ADIFF, CBC, BMP, TROPHS, GFR #### [address] [address] Neutrophils/100 WBC (Bld) 50.2 % Normal 37.0-80.0 [facility] ([place]) Comment on above: Performed By: #### M DW, PBNP, ANEU, ADIFF, CBC, BMP, TROPHS, GFR #### [address] [address] .GFRon 05-26-2024 GFR 111 ml/min/1.73sqm Normal [facility] ([place]) Comment on above: Result Comment: GFR Population mean for , Non- Americans Ages 20-29 = 116 mL/min/1.73 sq.m. Ages 30-39 = 107 mL/min/1.73 sq.m. Ages 40-49 = 99 mL/min/1.73 sq.m. Ages 50-59 = 93 mL/min/1.73 sq.m. Ages 60-69 = 85 mL/min/1.73 sq.m. Ages 70+ = 75 mL/min/1.73 sq.m. Chronic Kidney Disease: Less than 60 mL/min/1.73 square meters End Stage Renal Disease: Less than 15 mL/min/1.73 square meters Performed By: #### M DW, PBNP, ANEU, ADIFF, CBC, BMP, TROPHS, GFR #### [address] [address] GFR Non- 91 ml/min/1.73sqm Normal [facility] ([place]) Comment on above: Result Comment: GFR Population mean for , Non- Americans Ages 20-29 = 116 mL/min/1.73 sq.m. Ages 30-39 = 107 mL/min/1.73 sq.m. Ages 40-49 = 99 mL/min/1.73 sq.m. Ages 50-59 = 93 mL/min/1.73 sq.m. Ages 60-69 = 85 mL/min/1.73 sq.m. Ages 70+ = 75 mL/min/1.73 sq.m. Chronic Kidney Disease: Less than 60 mL/min/1.73 square meters End Stage Renal Disease: Less than 15 mL/min/1.73 square meters Performed By: #### M DW, PBNP, ANEU, ADIFF, CBC, BMP, TROPHS, GFR #### [address] [address] .MDWon 05-26-2024 Monocyte Distribution Width 21.12 High 0.00-20.00 [facility] ([place]) Comment on above: Result Comment: For adults in ED, MDW>20.0 may be associated with a higher risk of sepsis during the first 12hrs of hospital admission Performed By: #### M DW, PBNP, ANEU, ADIFF, CBC, BMP, TROPHS, GFR #### [address] [address] .NEUABSon 05-26-2024 Neutrophil, Absolute 3.3 10 3/mcL Normal 2.9-6.2 [facility]) Comment on above: Performed By: #### M DW, PBNP, ANEU, ADIFF, CBC, BMP, TROPHS, GFR #### [address] [address] BMPon 05-26-2024 BUN/Creatinine Ratio 16 ratio Normal 7-27 [facility]) Comment on above: Performed By: #### M DW, PBNP, ANEU, ADIFF, CBC, BMP, TROPHS, GFR #### [address] [address] Calcium [Mass/Vol] 10.0 mg/dL Normal 8.4-10.2 [facility]) Comment on above: Performed By: #### M DW, PBNP, ANEU, ADIFF, CBC, BMP, TROPHS, GFR #### [address] [address] Chloride [Moles/Vol] 102 mmol/L Normal 98-107 [facility]) Comment on above: Performed By: #### M DW, PBNP, ANEU, ADIFF, CBC, BMP, TROPHS, GFR #### [address] [address] CO2 [Moles/Vol] 31 mmol/L High 22-29 [facility]) Comment on above: Performed By: #### M DW, PBNP, ANEU, ADIFF, CBC, BMP, TROPHS, GFR #### [address] [address] Creatinine [Mass/Vol] 0.70 mg/dL Normal 0.55-1.02 [facility] ([place]) Comment on above: Performed By: #### M DW, PBNP, ANEU, ADIFF, CBC, BMP, TROPHS, GFR #### [address] [address] Electrolyte Balance 7.0 mEq/L Normal 4.0-15.0 [facility] ([place]) Comment on above: Performed By: #### M DW, PBNP, ANEU, ADIFF, CBC, BMP, TROPHS, GFR #### [address] [address] Glucose [Mass/Vol] 67 mg/dL Low 70-105 [facility] ([place]) Comment on above: Performed By: #### M DW, PBNP, ANEU, ADIFF, CBC, BMP, TROPHS, GFR #### [address] [address] Potassium [Moles/Vol] 5.1 mmol/L Normal 3.5-5.1 [facility] ([place]) Comment on above: Performed By: #### M DW, PBNP, ANEU, ADIFF, CBC, BMP, TROPHS, GFR #### [address] [address] Sodium [Moles/Vol] 140 mmol/L Normal 136-145 [facility] ([place]) Comment on above: Performed By: #### M DW, PBNP, ANEU, ADIFF, CBC, BMP, TROPHS, GFR #### [address] [address] Urea nitrogen [Mass/Vol] 11 mg/dL Normal 7-18 [facility] ([place]) Comment on above: Performed By: #### M DW, PBNP, ANEU, ADIFF, CBC, BMP, TROPHS, GFR #### [address] [address] CBCon 05-26-2024 Erythrocyte distribution width (RBC) [Ratio] 12.9 % Normal 11.5-14.5 [facility] ([place]) Comment on above: Performed By: #### M DW, PBNP, ANEU, ADIFF, CBC, BMP, TROPHS, GFR #### [address] [address] Hematocrit (Bld) [Volume fraction] 44.7 % Normal 37.0-47.0 [facility] ([place]) Comment on above: Performed By: #### M DW, PBNP, ANEU, ADIFF, CBC, BMP, TROPHS, GFR #### [address] [address] Hgb 15.3 G/dL Normal 12.0-16.0 [facility] ([place]) Comment on above: Performed By: #### M DW, PBNP, ANEU, ADIFF, CBC, BMP, TROPHS, GFR #### [place] [address] MCH (RBC) [Entitic mass] 31.9 pg High 27.0-31.2 [facility] ([place]) Comment on above: Performed By: #### M DW, PBNP, ANEU, ADIFF, CBC, BMP, TROPHS, GFR #### [place] [address] MCHC 34.2 G/dL Normal 33.0-37.0 [facility] ([place]) Comment on above: Performed By: #### M DW, PBNP, ANEU, ADIFF, CBC, BMP, TROPHS, GFR #### [address] [address] MCV (RBC) [Entitic vol] 93.4 fL Normal 80.0-94.0 [facility] ([place]) Comment on above: Performed By: #### M DW, PBNP, ANEU, ADIFF, CBC, BMP, TROPHS, GFR #### [place] [id number] Platelet 365 10 3/mcL Normal 130-400 [facility] ([place]) Comment on above: Performed By: #### M DW, PBNP, ANEU, ADIFF, CBC, BMP, TROPHS, GFR #### [place] [id number] Platelet mean volume (Bld) [Entitic vol] 7.9 fL Normal 7.4-10.4 [facility] ([place]) Comment on above: Performed By: #### M DW, PBNP, ANEU, ADIFF, CBC, BMP, TROPHS, GFR #### [place] [id number], [place] [address] RBC 4.79 10 6/mcL Normal 4.20-5.40 [facility] ([place]) Comment on above: Performed By: #### M DW, PBNP, ANEU, ADIFF, CBC, BMP, TROPHS, GFR #### [place] [id number], [place] [address] WBC 6.6 10 3/mcL Normal 4.6-10.8 [facility] ([place]) Comment on above: Performed By: #### M DW, PBNP, ANEU, ADIFF, CBC, BMP, TROPHS, GFR #### [address] [address] [address] ANGIOGRAPHY CHEST W/CONTR Johan 05-26-2024 CT ANGIOGRAPHY CHEST W/CONTRAST ORIGINAL EXAMINATION: CTA OF THE CHEST05/26/2024 1:00 pm CTA CHEST WITH CONTRAST TECHNIQUE: CTA of the chest was performed after the administration of intravenous contrast. Multiplanar reformatted images are provided for review. MIP images are provided for review. Automated exposure control, iterative reconstruction, and/or weight based adjustment of the mA/kV was utilized to reduce the radiation dose to as low as reasonably achievable. CTA of the thorax was acquired in the axial plane. Coronal and sagittal reformatted images were reviewed. Three dimensional reconstructions were created on a separate workstation. COMPARISON: None HISTORY: ORDERING SYSTEM PROVIDED HISTORY: Reason for Exam: chest pain; suspect PE FINDINGS: No filling defects seen in the pulmonary arteries. The heart size is normal; no pericardial effusion. There are no pathologically enlarged axillary, mediastinal or hilar lymph nodes. Calcified granuloma seen in the subcarinal space and left hilum. The aorta is normal in caliber. Bronchial wall thickening and multifocal mucous plugging visualized. No pulmonary consolidation identified. Calcified lymph nodes seen in the left lower lobe. There is a the 3 mm nodule along the left major fissure on image 78. There is no pleural effusion or pneumothorax. No aggressive osseous lesions seen. Multilevel Schmorl node deformities. Multilevel degenerative changes. The upper abdomen is not evaluated in detail. No suspicious findings seen in the visualized portion of the abdomen. Suspected intracapsular ruptures of the breast prostheses IMPRESSION: 1. No evidence of pulmonary embolism. 2. Bronchial wall thickening and multifocal mucous plugging. Correlate for bronchitis. 3. Suspected intracapsular ruptures of the breast prostheses. 4. Other incidental findings, as above. RECOMMENDATIONS: Left solid pulmonary nodule measuring 3 mm. Per Fleischner Society Guidelines, no routine follow-up imaging is recommended. These guidelines do not apply to immunocompromised patients and patients with cancer. Follow up in patients with significant comorbidities as clinically warranted. For lung cancer screening, adhere to Lung-RADS guidelines. Reference: Radiology. 2017; 284(1):228-43. Interpreted by: Davide Corbin MD Preliminary Report By: Davide Corbin MD Electronically signed By Davide Corbin MD Dictated Date: 05/26/2024 1:04:08 PM Prelim Date: 05/26/2024 1:09:06 PM Sign Date: 05/26/2024 1:09:06 PM Ordering Provider: TITUS SIMMS [facility] ([place]) LABORATORYOrdered By: SYSTEM SYSTEM on 05-26-2024 Basophil, Absolute 0.1 103/mcL Normal 0.0 - 0.2 10^3/mcL AO Workflow SS Basophils/100 WBC (Bld) 0.9 % Normal 0.0 - 2.5 % AO Workflow SS Calcium [Mass/Vol] 10.0 mg/dL Normal 8.4 - 10. 2 mg/dL AO ADM SS Chloride [Moles/Vol] 102 mmol/L Normal 98 - 10 7 mmol/L AO ADM SS CO2 [Moles/Vol] 31 mmol/L High 22 - 29 mmol/L AO ADM SS Creatinine [Mass/Vol] 0.70 mg/dL Normal 0.55 - 1.02 mg/dL AO ADM SS Electrolyte Balance 7.0 mEq/L Normal 4.0 - 15 .0 mEq/L AO ADM SS Eosinophil, Absolute 0.2 103/mcL Normal 0.0 - 0 .4 10^3/mcL AO Workflow SS Eosinophils/100 WBC (Bld) 3.2 % Normal 0.0 - 7.0 % AO Workflow SS Erythrocyte distribution width (RBC) [Ratio] 12.9 % Normal 11.5 - 14.5 % AO Workflow SS GFR/1.73 sq M.predicted among blacks MDRD (S/P/Bld) [Vol rate/Area] 111 ml/min/1.73sqm Invalid Interpretation Code AO Chemistry S Comment on above: Interpretive Data: GFR Population mean for , Non- Americans Ages 20-29 = 116 mL/min/1.73 sq.m. Ages 30-39 = 107 mL/min/1.73 sq.m. Ages 40-49 = 99 mL/min/1.73 sq.m. Ages 50-59 = 93 mL/min/1.73 sq.m. Ages 60-69 = 85 mL/min/1.73 sq.m. Ages 70+ = 75 mL/min/1.73 sq.m. Chronic Kidney Disease: Less than 60 mL/min/1.73 square meters End Stage Renal Disease: Less than 15 mL/min/1.73 square meters GFR/1.73 sq M.predicted among non-blacks MDRD (S/P/Bld) [Vol rate/Area] 91 ml/min/1.73sqm Invalid Interpretation Code AO Chemistry S Comment on above: Interpretive Data: GFR Population mean for , Non- Americans Ages 20-29 = 116 mL/min/1.73 sq.m. Ages 30-39 = 107 mL/min/1.73 sq.m. Ages 40-49 = 99 mL/min/1.73 sq.m. Ages 50-59 = 93 mL/min/1.73 sq.m. Ages 60-69 = 85 mL/min/1.73 sq.m. Ages 70+ = 75 mL/min/1.73 sq.m. Chronic Kidney Disease: Less than 60 mL/min/1.73 square meters End Stage Renal Disease: Less than 15 mL/min/1.73 square meters Glucose [Mass/Vol] 67 mg/dL Low 70 - 105 mg/dL AO ADM SS Hematocrit (Bld) [Volume fraction] 44.7 % Normal 37.0 - 47.0 % AO Workflow SS Hemoglobin (Bld) [Mass/Vol] 15.3 G/dL Normal 12.0 - 16.0 G/dL AO Workflow SS Lymphocyte, Absolute 2.1 103/mcL Normal 0.8 - 3 .9 10^3/mcL AO Workflow SS Lymphocytes/100 WBC (Bld) 32.2 % Normal 10.0 - 50.0 % AO Workflow SS MCH (RBC) [Entitic mass] 31.9 pg High 27.0 - 31.2 pg AO Workflow SS MCHC 34.2 G/dL Normal 33.0 - 37.0 G/dL AO Workflow SS MCV (RBC) [Entitic vol] 93.4 fL Normal 80.0 - 94.0 fL AO Workflow SS Monocyte distribution width Auto (Bld) [Entitic vol] 21.12 1 High 0.00 - 20.00 AO Workflow SS Comment on above: Result Comment: For adults in ED, MDW>20.0 may be associated with a higher risk of sepsis during the first 12hrs of hospital admission Monocyte, Absolute 0.9 103/mcL Normal 0.2 - 1.0 10^3/mcL AO Workflow SS Monocytes/100 WBC (Bld) 13.5 % High 1.7 - 13.0 % AO Workflow SS Natriuretic peptide.B prohormone N-Terminal [Mass/Vol] 55 pg/mL Normal 0 - 125 pg/mL AO ADM SS Comment on above: Interpretive Data: N T-proBNP results of less than 300 pg/mL effectively rules out acute congestive heart failure with 99% negative predictive value. Neutrophil, Absolute 3.3 103/mcL Normal 2.9 - 6 .2 10^3/mcL AO Workflow SS Neutrophils/100 WBC (Bld) 50.2 % Normal 37.0 - 80.0 % AO Workflow SS Platelet mean volume (Bld) [Entitic vol] 7.9 fL Normal 7.4 - 10.4 fL AO Workflow SS Platelets (Bld) [#/Vol] 365 103/mcL Normal 130 - 400 10^3/mcL AO Workflow SS Potassium [Moles/Vol] 5.1 mmol/L Normal 3.5 - 5.1 mmol/L AO ADM SS RBC (Bld) [#/Vol] 4.79 106/mcL Normal 4.20 - 5.4 0 10^6/mcL AO Workflow SS Sodium [Moles/Vol] 140 mmol/L Normal 136 - 145 mmol/L AO ADM SS Troponin I.cardiac DL <= 0.01 ng/mL [Mass/Vol] ng/L Normal 0 - 51 ng/L AO ADM SS Comment on above: Interpretive Data: H igh Sensitive Troponin I Reference Ranges: Female: 0-51 ng/L Male: 0-76 ng/L Testing performed on [employer] using a homogeneous sandwich chemiluminescent immunoassay based on [employer] technology. Urea nitrogen [Mass/Vol] 11 mg/dL Normal 7 - 18 mg/dL AO ADM SS Urea nitrogen/Creatinine [Mass ratio] 16 ratio Normal 7 - 27 ratio AO ADM SS WBC (Bld) [#/Vol] 6.6 103/mcL Normal 4.6 - 10.8 10^3/mcL AO Workflow SS PBNPon 05-26-2024 Natriuretic peptide B (Bld) [Mass/Vol] 55 pg/mL Normal 0-125 [facility] ([place]) Comment on above: Result Comment: NT-p roBNP results of less than 300 pg/mL effectively rules out acute congestive heart failure with 99% negative predictive value. Performed By: #### M DW, PBNP, ANEU, ADIFF, CBC, BMP, TROPHS, GFR #### [address] [address] [facility] High Sensitivity Troponin I <4 Normal 0-51 [facility] ([place]) Comment on above: Result Comment: High Sensitive Troponin I Reference Ranges: Female: 0-51 ng/L Male: 0-76 ng/L Testing performed on [employer] using a homogeneous sandwich chemiluminescent immunoassay based on [employer] technology. Performed By: #### M DW, PBNP, ANEU, ADIFF, CBC, BMP, TROPHS, GFR #### [address] [address] CNOVon 11-09-2019 CNOV Office Visit (FAMPWS ) ANALISA DAMON ([id number]) 1980 F Date Time Provider Department 11/09/19 3:40 PM ALEXANDER PAULA (DNP.AUTOMATIC MACHINES SUPERVISOR) FAMPWS During your visit today, we recorded the following information about you: Temperature Pulse Respiration Weight 98.4 degrees 98/minute 18/minute 64.9 kg Alexander Paula DNP.[employer], AFFILIATE MANAGER.[place] 11/09/2019 4:37 PM Signed Chief Complaint Patient presents with: Blood Pressure: 130/101 Fatigue: hair loss Derm Problem: skin dry Knee Pain: right - couple months on and off HPI Analisa Damon is a 39 year old female who presents here today for blood pressure concerns, Fatigue: hair loss, Derm Problem: skin dry , Knee Pain: right - couple months on and off. This is an unestablished patient. No primary care provider on file. This is a new patient to me. Denies any recent urgent care visits, ER visits or hospitalizations. Her main concern today is her blood pressure. Was seen by another per biter and noted to have elevated blood pressure. Other healthcare provider ordered a TSH, CMP and CBC to be completed for the same issues listed above. He was also placed on Wellbutrin for smoking cessation. She has not started this medical condition yet. She desires to quit smoking. Complains of multiple joint aches and pains. She has a history of opioid abuse. In 2008 she had bilateral breast augmentation and was on Percocet. After that time she was hooked on Percocet. Currently is on Suboxone treatments. Complains recently of weight gain, fatigue and hair loss. Also complains of dry skin. No fever or chills. No nausea vomiting diarrhea. Otherwise feels healthy. Past medical history, appointments, medications, allergies reviewed. Previous Medical History PAST MEDICAL HISTORY Diagnosis Date - Opioid abuse (HCC) 2008 - Tobacco use current Previous Surgical History PAST SURGICAL HISTORY Procedure Laterality Date - BREAST AUGMENTATION W/PROSTHETIC IMPLANT 2008 - REPAIR OF FEMUR FRACTURE Left 1990 - TUBAL LIGATION HX Bilateral 2010 - VAGINAL HYSTERECTOMY 2010 Hysterectomy, vaginal - VAGINAL HYSTERECTOMY Hysterectomy, vaginal Family History FAMILY HISTORY Problem Relation Age of Onset - Kidney Disease Mother - Emphysema Mother - Heart disease Mother MVP - Hypertension Mother - No Known Problems Father - No Known Problems Brother - Breast Cancer Maternal Grandmother - No Known Problems Daughter - No Known Problems Son - No Known Problems Son Patient Allergies ALLERGIES No Known Allergies Current Medications Current Outpatient Medications on File Prior to Visit Medication Sig - albuterol HFA (PROAIR HFA) 90 mcg/actuation inhaler Inhale 2 Puffs as instructed every 4 hours as needed. - benzonatate (TESSALON PERLE) 100 mg capsule Take 2 capsules by mouth three times daily as needed. - guaiFENesin (MUCINEX) 600 mg 12 hr tablet Take 2 tablets by mouth twice daily. (Patient not taking: Reported on 04/11/2019 ) - albuterol HFA (PROVENTIL HFA, VENTOLIN HFA) 90 mcg/actuation inhaler Inhale 2 Puffs as instructed every 6 hours as needed for Wheezing/Shortness of Breath. (Patient not taking: Reported on 04/11/2019 ) No current facility-administered medications on file prior to visit. Social History Social History Tobacco Use - Smoking status: Current Every Day Smoker Packs/day: 0.50 Types: Cigarettes - Smokeless tobacco: Never Used Substance Use Topics - Alcohol use: Yes Alcohol/week: 2.5 standard drinks Types: 1 Cans of Beer (12oz) per week - Drug use: Yes Types: Opiates, Marijuana Review of Symptoms GENERAL: No weight loss, malaise or fevers. No fatigue or night sweats. HEENT: Negative for frequent or significant headaches NECK: Negative for lumps, pain, neck swelling, or swollen nodes RESPIRATORY: Negative for wheezing, dyspnea or shortness of breath CARDIOVASCULAR: Negative for chest pain GI: No nausea, vomiting, or diarrhea. MUSCULOSKELETAL: + for generalized joint pain or muscle aches SKIN: Dry skin EXAM: Pulse 98 Temp 36.9 ?C (98.4 ?F) Resp 18 Wt 64.9 kg (143 lb) SpO2 96% General Appearance: Well appearing, alert, in no acute distress, well-hydrated, well nourished. Skin: Skin color, texture, turgor normal, no suspicious rashes or lesions. Head: Normocephalic, no masses, lesions, tenderness or abnormalities. Eyes: Anicteric sclera. No redness or drainage. Oropharynx: Lips, mucosa, and tongue normal, teeth and gums normal, oropharynx normal. Neck: Supple, no mass or lumps. Lymph Nodes: No cervical, supraclavicular, pre/post-auricular, or submandibular lymphadenopathy Lungs: Lungs clear to auscultation. No wheezing, rhonchi, rales. Heart: RRR without murmur, gallop, or rubs. No ectopy. Extremities: No deformities, edema, skin discoloration, clubbing or cyanosis. Pulses: 2+ at radial. Full range of motion extremities. Strength in the upper and lower extremities 5 out of 5 bilaterally. Sensation is grossly intact upper and lower extremity is bilaterally. Cervical spine with full range of motion. Strength 5 out of 5. No step offs, mass or bruising/swelling noted. Psych: Attitude - cooperative, easily engaged in conversation Appearance - normal, hygiene and grooming appropriate Affect - euthymic, normal mood Mental status: Alert, attentive. Speech is clear and fluent with good repetition, comprehension Coordination: There are no abnormal or extraneous movements. Gait/Stance: Posture is normal. Gait is steady with normal steps Health Maintenance List DTAP,TDAP,TD(1 - Tdap) due on 1992 PAP TESTING due on 2002 HPV TESTING due on 2011 INFLUENZA(1) due on 06/04/2019 Data reviewed Last 5 Encounter BP Readings: Date: BP: 04/11/2019 118/62 01/27/2018 110/70 04/01/2017 122/80 09/05/2016 126/78 05/20/2016 130/76 BMI Readings from Last 5 Encounters: No data found for BMI Last 5 Encounter Wt Readings: Date: Wt: 04/11/2019 58.5 kg (129 lb) 01/27/2018 59 kg (130 lb) 04/01/2017 61.6 kg (135 lb 12.8 oz) 09/05/2016 62.6 kg (138 lb) 05/20/2016 63 kg (139 lb) Medication and allergy list reviewed, reconciled and updated. ASSESSMENT/PLAN: 1. Blood pressure check - ICD9: V81.1, ICD10: Z01.30 (primary diagnosis) Unremarkable exam today. No abnormal findings. Blood pressure checks daily. Follow-up in 2 weeks with Alexander Paula DNP.AUTOMATIC MACHINES SUPERVISOR Start taking her Wellbutrin for smoking cessation. Use Eucerin, Cetaphil or Lubriderm daily for skin dryness Complete lab work as previously ordered Acetaminophen or Motrin as needed for multiple joint aches and pains. Return to the clinic or seek care at [facility] for any worsening signs or symptoms: such as fevers, chills, nausea, or diarrhea. For severe symptoms seek care at the closest ER. Plan of care, medicaiton side effects and management reviewed. Patient verbalizes understanding of instructions. 2. Hair loss - ICD9: 704.00, ICD10: L65.9 Plan as in #1 3. Tobacco use current - ICD9: 305.1, ICD10: Z72.0 - Cessation encouraged. - Start Wellbutrin Rx - Physiologic and physical aspects of tobacco addiction as well as strategies for quitting were discussed. - Counseling was given focusing on the harmful effects of this addiction especially given the patient's medical condition(s) which will be worsened because of the chemicals in tobacco. - Counseling was given 3-4 minutes. 4. Opioid abuse (HCC) - ICD9: 305.50, ICD10: F11.10 Plan as in #1. Continue with Suboxone treatments 5. Fatigue, unspecified type - ICD9: 780.79, ICD10: R53.83 Plan as in #1 6. Chronic pain of multiple joints - ICD9: 719.49, 338.29, ICD10: M25.50, G89.29 Plan as in #1 Alexander Paula DNP.[place] This note was completed with [employer] dictation software. Note was reviewed for accuracy. There may be minor misspellings or grammar miscues with [employer]ictation. [place] [id number] Alexander Paula DNP.[place], AFFILIATE MANAGER.[place] 11/09/2019 4:35 PM Addendum Blood pressure checks daily. Follow-up in 2 weeks with Alexander Paula DNP.AUTOMATIC MACHINES SUPERVISOR Start taking her Wellbutrin for smoking cessation. Use Eucerin, Cetaphil or Lubriderm daily for skin dryness Complete lab work as previously ordered Return to the clinic or seek care at [facility] for any worsening signs or symptoms: such as fevers, chills, nausea, or diarrhea. For severe symptoms seek care at the closest ER. Plan of care, medicaiton side effects and management reviewed. Patient verbalizes understanding of instructions. Healthy Habits: Recommend regular physical activity, nutrition and healthy eating habits. Consume a variety of foods every day focusing on fruits, vegetables and lean meats). Eat foods low in fat, saturated fat and cholesterol. Eat a limited amount of salt and sodium. Drink adequate amounts of water and limit sugary drinks. Exercise portion control in meal selection. Establish a mindset of a wellness approach to health. Thank you for allowing me to provide your care today. I look forward to seeing you again and maintaining your health. Alexander Paula DNP.AUTOMATIC MACHINES SUPERVISOR Referring Provider: SELF [200] Allergies As of Date: 11/09/2019 (No Known Allergies) Date Reviewed: 11/09/2019 Reviewed by: Nahed (Mirta) MIRTA Jean - Fully Assessed Reason for Visit: Blood Pressure [15] Cmt: 130/101 Fatigue [46] Cmt: hair loss Derm Problem [33] Cmt: skin dry Knee Pain [132] Cmt: right - couple months on and off Reason For Visit History Recorded Primary Visit Diagnosis:Blood pressure check [Z01.30] Other Visit Diagnoses:Hair loss [L65.9] Tobacco use current [Z72.0] Opioid abuse (HCC) [F11.10] Fatigue, unspecified type [R53.83] Chronic pain of multiple joints [M25.50, G89.29] Prescriptions as of 11/09/2019 Sig: BUPRENORPHINE 8 MG-NALOXONE 2* TAKE 1 FILM SUBLINGUALLY DAILY ALBUTEROL SULFATE HFA 90 MCG/* Inhale 2 Puffs as instructed * BENZONATATE 100 MG CAPSULE Take 2 capsules by mouth thre* GUAIFENESIN ER 600 MG TABLET,* Take 2 tablets by mouth twice* Patient not taking: Reported on 04/11/2019 ALBUTEROL SULFATE HFA 90 MCG/* Inhale 2 Puffs as instructed * Patient not taking: Reported on 04/11/2019 Problem List As Of Date 11/09/2019 Noted Resolved Tobacco use current [Z72.0] Opioid abuse (HCC) [F11.10] 2009 Other instructions from your clinician: Blood pressure checks daily. Follow-up in 2 weeks with Alexander Paula DNP.AUTOMATIC MACHINES SUPERVISOR Start taking her Wellbutrin for smoking cessation. Use Eucerin, Cetaphil or Lubriderm daily for skin dryness Complete lab work as previously ordered Return to the clinic or seek care at [facility] for any worsening signs or symptoms: such as fevers, chills, nausea, or diarrhea. For severe symptoms seek care at the closest ER. Plan of care, medicaiton side effects and management reviewed. Patient verbalizes understanding of instructions. Healthy Habits: Recommend regular physical activity, nutrition and healthy eating habits. Consume a variety of foods every day focusing on fruits, vegetables and lean meats). Eat foods low in fat, saturated fat and cholesterol. Eat a limited amount of salt and sodium. Drink adequate amounts of water and limit sugary drinks. Exercise portion control in meal selection. Establish a mindset of a wellness approach to health. Thank you for allowing me to provide your care today. I look forward to seeing you again and maintaining your health. Alexander Paula DNP.[place] Encounter Status:Closed by ALEXANDER PAULA DNP, CNP on 11/09/19 Normal [facility] PROGRESSon 11-09-2019 PROGRESS HNO ID: [id number] Author: Alexander (Paula.Flaquito) CARTER Paula.[place] Service: ? Author Type: Nurse Practitioner Type: Progress Notes Filed: 11/09/2019 4:37 PM Note Text: Chief Complaint Patient presents with: Blood Pressure: 130/101 Fatigue: hair loss Derm Problem: skin dry Knee Pain: right - couple months on and off HPI Analisa Damon is a 39 year old female who presents here today for blood pressure concerns, Fatigue: hair loss, Derm Problem: skin dry , Knee Pain: right - couple months on and off. This is an unestablished patient. No primary care provider on file. This is a new patient to me. Denies any recent urgent care visits, ER visits or hospitalizations. Her main concern today is her blood pressure. Was seen by another per biter and noted to have elevated blood pressure. Other healthcare provider ordered a TSH, CMP and CBC to be completed for the same issues listed above. He was also placed on Wellbutrin for smoking cessation. She has not started this medical condition yet. She desires to quit smoking. Complains of multiple joint aches and pains. She has a history of opioid abuse. In 2008 she had bilateral breast augmentation and was on Percocet. After that time she was hooked on Percocet. Currently is on Suboxone treatments. Complains recently of weight gain, fatigue and hair loss. Also complains of dry skin. No fever or chills. No nausea vomiting diarrhea. Otherwise feels healthy. Past medical history, appointments, medications, allergies reviewed. Previous Medical History PAST MEDICAL HISTORY Diagnosis Date - Opioid abuse (HCC) 2008 - Tobacco use current Previous Surgical History PAST SURGICAL HISTORY Procedure Laterality Date - BREAST AUGMENTATION W/PROSTHETIC IMPLANT 2008 - REPAIR OF FEMUR FRACTURE Left 1990 - TUBAL LIGATION HX Bilateral 2010 - VAGINAL HYSTERECTOMY 2011 Hysterectomy, vaginal - VAGINAL HYSTERECTOMY Hysterectomy, vaginal Family History FAMILY HISTORY Problem Relation Age of Onset - Kidney Disease Mother - Emphysema Mother - Heart disease Mother MVP - Hypertension Mother - No Known Problems Father - No Known Problems Brother - Breast Cancer Maternal Grandmother - No Known Problems Daughter - No Known Problems Son - No Known Problems Son Patient Allergies ALLERGIES No Known Allergies Current Medications Current Outpatient Medications on File Prior to Visit Medication Sig - albuterol HFA (PROAIR HFA) 90 mcg/actuation inhaler Inhale 2 Puffs as instructed every 4 hours as needed. - benzonatate (TESSALON PERLE) 100 mg capsule Take 2 capsules by mouth three times daily as needed. - guaiFENesin (MUCINEX) 600 mg 12 hr tablet Take 2 tablets by mouth twice daily. (Patient not taking: Reported on 04/11/2019 ) - albuterol HFA (PROVENTIL HFA, VENTOLIN HFA) 90 mcg/actuation inhaler Inhale 2 Puffs as instructed every 6 hours as needed for Wheezing/Shortness of Breath. (Patient not taking: Reported on 04/11/2019 ) No current facility-administered medications on file prior to visit. Social History Social History Tobacco Use - Smoking status: Current Every Day Smoker Packs/day: 0.50 Types: Cigarettes - Smokeless tobacco: Never Used Substance Use Topics - Alcohol use: Yes Alcohol/week: 2.5 standard drinks Types: 1 Cans of Beer (12oz) per week - Drug use: Yes Types: Opiates, Marijuana Review of Symptoms GENERAL: No weight loss, malaise or fevers. No fatigue or night sweats. HEENT: Negative for frequent or significant headaches NECK: Negative for lumps, pain, neck swelling, or swollen nodes RESPIRATORY: Negative for wheezing, dyspnea or shortness of breath CARDIOVASCULAR: Negative for chest pain GI: No nausea, vomiting, or diarrhea. MUSCULOSKELETAL: + for generalized joint pain or muscle aches SKIN: Dry skin EXAM: Pulse 98 Temp 36.9 ?C (98.4 ?F) Resp 18 Wt 64.9 kg (143 lb) SpO2 96% General Appearance: Well appearing, alert, in no acute distress, well-hydrated, well nourished. Skin: Skin color, texture, turgor normal, no suspicious rashes or lesions. Head: Normocephalic, no masses, lesions, tenderness or abnormalities. Eyes: Anicteric sclera. No redness or drainage. Oropharynx: Lips, mucosa, and tongue normal, teeth and gums normal, oropharynx normal. Neck: Supple, no mass or lumps. Lymph Nodes: No cervical, supraclavicular, pre/post-auricular, or submandibular lymphadenopathy Lungs: Lungs clear to auscultation. No wheezing, rhonchi, rales. Heart: RRR without murmur, gallop, or rubs. No ectopy. Extremities: No deformities, edema, skin discoloration, clubbing or cyanosis. Pulses: 2+ at radial. Full range of motion extremities. Strength in the upper and lower extremities 5 out of 5 bilaterally. Sensation is grossly intact upper and lower extremity is bilaterally. Cervical spine with full range of motion. Strength 5 out of 5. No step offs, mass or bruising/swelling noted. Psych: Attitude - cooperative, easily engaged in conversation Appearance - normal, hygiene and grooming appropriate Affect - euthymic, normal mood Mental status: Alert, attentive. Speech is clear and fluent with good repetition, comprehension Coordination: There are no abnormal or extraneous movements. Gait/Stance: Posture is normal. Gait is steady with normal steps Health Maintenance List DTAP,TDAP,TD(1 - Tdap) due on 1992 PAP TESTING due on 2002 HPV TESTING due on 2011 INFLUENZA(1) due on 06/04/2019 Data reviewed Last 5 Encounter BP Readings: Date: BP: 04/11/2019 118/62 01/27/2018 110/70 04/01/2017 122/80 09/05/2016 126/78 05/20/2016 130/76 BMI Readings from Last 5 Encounters: No data found for BMI Last 5 Encounter Wt Readings: Date: Wt: 04/11/2019 58.5 kg (129 lb) 01/27/2018 59 kg (130 lb) 04/01/2017 61.6 kg (135 lb 12.8 oz) 09/05/2016 62.6 kg (138 lb) 05/20/2016 63 kg (139 lb) Medication and allergy list reviewed, reconciled and updated. ASSESSMENT/PLAN: 1. Blood pressure check - ICD9: V81.1, ICD10: Z01.30 (primary diagnosis) Unremarkable exam today. No abnormal findings. Blood pressure checks daily. Follow-up in 2 weeks with Alexander Paula DNP.AUTOMATIC MACHINES SUPERVISOR Start taking her Wellbutrin for smoking cessation. Use Eucerin, Cetaphil or Lubriderm daily for skin dryness Complete lab work as previously ordered Acetaminophen or Motrin as needed for multiple joint aches and pains. Return to the clinic or seek care at [facility] for any worsening signs or symptoms: such as fevers, chills, nausea, or diarrhea. For severe symptoms seek care at the closest ER. Plan of care, medicaiton side effects and management reviewed. Patient verbalizes understanding of instructions. 2. Hair loss - ICD9: 704.00, ICD10: L65.9 Plan as in #1 3. Tobacco use current - ICD9: 305.1, ICD10: Z72.0 - Cessation encouraged. - Start Wellbutrin Rx - Physiologic and physical aspects of tobacco addiction as well as strategies for quitting were discussed. - Counseling was given focusing on the harmful effects of this addiction especially given the patient's medical condition(s) which will be worsened because of the chemicals in tobacco. - Counseling was given 3-4 minutes. 4. Opioid abuse (HCC) - ICD9: 305.50, ICD10: F11.10 Plan as in #1. Continue with Suboxone treatments 5. Fatigue, unspecified type - ICD9: 780.79, ICD10: R53.83 Plan as in #1 6. Chronic pain of multiple joints - ICD9: 719.49, 338.29, ICD10: M25.50, G89.29 Plan as in #1 Alexander Paula DNP.AUTOMATIC MACHINES SUPERVISOR This note was completed with [employer] dictation software. Note was reviewed for accuracy. There may be minor misspellings or grammar miscues with [employer]. [place] [id number] Normal [facility] CNOVon 04-11-2019 CNOV Office Visit ([facility] ) ANALISA DAMON ([id number]) 1980 F Date Time Provider Department 04/11/19 12:00 PM ARTHUR BLOUNT ([place]) [facility] During your visit today, we recorded the following information about you: Temperature Pulse Respiration Blood pressure 97.8 degrees 68/minute 16/minute 118/62 Weight 58.5 kg Arthur Blount APRN.CNP 04/11/2019 1:00 PM Signed Subjective HPI HPI Analisa Damon is a 38 year old female who presents today for CC of cough, wheeze. This started 1 week ago. Has tried otc medication. Symptoms are worsened at night. Risk factors everyday smoker. .Patient presents with: Cough: fever, fatigue, chills x 1 week No past medical history on file. PAST SURGICAL HISTORY Procedure Laterality Date - BREAST AUGMENTATION W/PROSTHETIC IMPLANT 2008 - VAGINAL HYSTERECTOMY 2010 Hysterectomy, vaginal - VAGINAL HYSTERECTOMY Hysterectomy, vaginal ALLERGIES Patient has no known allergies. MEDICATIONS guaiFENesin (MUCINEX) 600 mg 12 hr tablet Take 2 tablets by mouth twice daily. albuterol HFA (PROVENTIL HFA, VENTOLIN HFA) 90 mcg/actuation inhaler Inhale 2 Puffs as instructed every 6 hours as needed for Wheezing/Shortness of Breath. No family history on file. Social History Tobacco Use - Smoking status: Current Every Day Smoker Packs/day: 0.50 Types: Cigarettes - Smokeless tobacco: Never Used Substance Use Topics - Alcohol use: Yes Alcohol/week: 1.5 oz Types: 1 Cans of Beer (12oz) per week - Drug use: Yes Review of Systems Constitutional: Negative for fever. HENT: Positive for congestion. Negative for ear pain, nosebleeds and sore throat. Respiratory: Positive for cough. Negative for shortness of breath and wheezing. Musculoskeletal: Negative for neck pain. Objective Blood pressure 118/62, pulse 68, temperature 36.6 ?C (97.8 ?F), temperature source Tympanic, resp. rate 16, weight 58.5 kg (129 lb), SpO2 96 %. Physical Exam Constitutional: She is oriented to person, place, and time and well-developed, well-nourished, and in no distress. Non-toxic appearance. She does not have a sickly appearance. No distress. HENT: Head: Normocephalic and atraumatic. Right Ear: Hearing, tympanic membrane, external ear and ear canal normal. Left Ear: Hearing, tympanic membrane, external ear and ear canal normal. Nose: Nose normal. Mouth/Throat: Uvula is midline, oropharynx is clear and moist and mucous membranes are normal. Eyes: Pupils are equal, round, and reactive to light. Conjunctivae and lids are normal. Right eye exhibits no discharge. Left eye exhibits no discharge. No scleral icterus. Neck: Trachea normal and normal range of motion. Neck supple. Cardiovascular: Normal rate, regular rhythm and normal heart sounds. Pulmonary/Chest: Effort normal. She has rhonchi (clear with cough) in the left lower field. Lymphadenopathy: She has no cervical adenopathy. Neurological: She is alert and oriented to person, place, and time. Skin: No rash noted. She is not diaphoretic. ASSESSMENT/PLAN: 1. Cough - ICD9: 786.2, ICD10: R05 - Discussed supportive care - Limit exposure to smoke and other inhaled irritants - Discussed possible red flags and when to seek medical attention - Follow up in 3-5 days or sooner if no better or worse -If you experience chest pain/shortness of breath go to ER - XR CHEST 2V FRONTAL/LAT - PREDNISONE 20 MG TABLET - ALBUTEROL SULFATE HFA 90 MCG/ACTUATION AEROSOL INHALER - BENZONATATE 100 MG CAPSULE Prescription instructions reviewed with patient as applicable. Patient advised if symptoms do not improve or if symptoms worsen sooner, to contact the office for further evaluation by their primary care physician. Potential red flag symptoms discussed with the patient. Reviewed appropriate action plan to take if red flag symptoms occur. Patient agreeable to treatment plan. Arthur Blount APRN.AUTOMATIC MACHINES SUPERVISOR Referring Provider: SELF [200] Allergies As of Date: 04/11/2019 (No Known Allergies) Date Reviewed: 04/11/2019 Reviewed by: Maritza Castillo Ma - Fully Assessed Reason for Visit: Cough [28] Cmt: fever, fatigue, chills x 1 week Primary Visit Diagnosis:Cough [R05] Order(s):XR CHEST 2V FRONTAL/LAT [[id number]] Order #: [id number] #:[id number] predniSONE (DELTASONE) 20 mg tabletTake 2 tablets by mouth once daily for 5 days.Disp: 10 tabletRfl: 0 albuterol HFA (PROAIR HFA) 90 mcg/actuation inhalerInhale 2 Puffs as instructed every 4 hours as needed.Disp: 1 InhalerRfl: 0 benzonatate (TESSALON PERLE) 100 mg capsuleTake 2 capsules by mouth three times daily as needed.Disp: 30 capsuleRfl: 0 Prescriptions as of 04/11/2019 Sig: PREDNISONE 20 MG TABLET Take 2 tablets by mouth once * ALBUTEROL SULFATE HFA 90 MCG/* Inhale 2 Puffs as instructed * BENZONATATE 100 MG CAPSULE Take 2 capsules by mouth thre* GUAIFENESIN ER 600 MG TABLET,* Take 2 tablets by mouth twice* Patient not taking: Reported on 04/11/2019 ALBUTEROL SULFATE HFA 90 MCG/* Inhale 2 Puffs as instructed * Patient not taking: Reported on 04/11/2019 Problem List As Of Date: 04/11/2019 (None) Prescriptions ordered this encounter Disp Refills Start End PREDNISONE 20 MG TABLET 10 t* 0 04/11/2019 04/16/2019 Route: ORAL Sig: Take 2 tablets by mouth once daily for 5 days. ALBUTEROL SULFATE HFA 90 MCG/ACTUATI* 1 In* 0 04/11/2019 Cmt: Generic or brand: dispense inhaler preferred by patient/insurance unless ARTIE flag is selected. Route: INHALATION Sig: Inhale 2 Puffs as instructed every 4 hours as needed. BENZONATATE 100 MG CAPSULE 30 c* 0 04/11/2019 Route: ORAL Sig: Take 2 capsules by mouth three times daily as needed. Letter Text Encounter Status:Closed by ARTHUR BLOUNT CNP on 04/11/19 Normal [facility] PROGRESSon 04-11-2019 PROGRESS HNO ID: [id number] Author: Thania Monroy (Rt) Kelly Lorenzo Service: ? Author Type: Tattoo Technician Type: Progress Notes Filed: 04/11/2019 12:31 PM Note Text: Radiology Service Progress Note PATIENT NAME: Analisa Damon DATE OF SERVICE: April 11, 2019 TIME: 12:24 PM PATIENT IDENTITY VERIFICATION COMPLETED USING TWO (2) METHODS: Patient confirmed name verbally and Date of . PATIENT GENDER DATA: Female. status: : No status: NO. PATIENT RELEVANT IMPLANT DATA REVIEWED: Not Applicable RADIOLOGY DEPARTMENT: General X-ray: Exam(s) Completed: Chest X-Ray PERIPHERAL IV DATA: Not applicable SIGNED BY: RT Edwina April 11, 2019 12:24 PM Normal [facility] PROGRESS HNO ID: [id number] Author: Arthur Blount Service: ? Author Type: Nurse Practitioner Type: Progress Notes Filed: 04/11/2019 1:00 PM Note Text: Subjective HPI HPI Analisa Damon is a 38 year old female who presents today for CC of cough, wheeze. This started 1 week ago. Has tried otc medication. Symptoms are worsened at night. Risk factors everyday smoker. .Patient presents with: Cough: fever, fatigue, chills x 1 week No past medical history on file. PAST SURGICAL HISTORY Procedure Laterality Date - BREAST AUGMENTATION W/PROSTHETIC IMPLANT 2008 - VAGINAL HYSTERECTOMY 2010 Hysterectomy, vaginal - VAGINAL HYSTERECTOMY Hysterectomy, vaginal ALLERGIES Patient has no known allergies. MEDICATIONS guaiFENesin (MUCINEX) 600 mg 12 hr tablet Take 2 tablets by mouth twice daily. albuterol HFA (PROVENTIL HFA, VENTOLIN HFA) 90 mcg/actuation inhaler Inhale 2 Puffs as instructed every 6 hours as needed for Wheezing/Shortness of Breath. No family history on file. Social History Tobacco Use - Smoking status: Current Every Day Smoker Packs/day: 0.50 Types: Cigarettes - Smokeless tobacco: Never Used Substance Use Topics - Alcohol use: Yes Alcohol/week: 1.5 oz Types: 1 Cans of Beer (12oz) per week - Drug use: Yes Review of Systems Constitutional: Negative for fever. HENT: Positive for congestion. Negative for ear pain, nosebleeds and sore throat. Respiratory: Positive for cough. Negative for shortness of breath and wheezing. Musculoskeletal: Negative for neck pain. Objective Blood pressure 118/62, pulse 68, temperature 36.6 ?C (97.8 ?F), temperature source Tympanic, resp. rate 16, weight 58.5 kg (129 lb), SpO2 96 %. Physical Exam Constitutional: She is oriented to person, place, and time and well-developed, well-nourished, and in no distress. Non-toxic appearance. She does not have a sickly appearance. No distress. HENT: Head: Normocephalic and atraumatic. Right Ear: Hearing, tympanic membrane, external ear and ear canal normal. Left Ear: Hearing, tympanic membrane, external ear and ear canal normal. Nose: Nose normal. Mouth/Throat: Uvula is midline, oropharynx is clear and moist and mucous membranes are normal. Eyes: Pupils are equal, round, and reactive to light. Conjunctivae and lids are normal. Right eye exhibits no discharge. Left eye exhibits no discharge. No scleral icterus. Neck: Trachea normal and normal range of motion. Neck supple. Cardiovascular: Normal rate, regular rhythm and normal heart sounds. Pulmonary/Chest: Effort normal. She has rhonchi (clear with cough) in the left lower field. Lymphadenopathy: She has no cervical adenopathy. Neurological: She is alert and oriented to person, place, and time. Skin: No rash noted. She is not diaphoretic. ASSESSMENT/PLAN: 1. Cough - ICD9: 786.2, ICD10: R05 - Discussed supportive care - Limit exposure to smoke and other inhaled irritants - Discussed possible red flags and when to seek medical attention - Follow up in 3-5 days or sooner if no better or worse -If you experience chest pain/shortness of breath go to ER - XR CHEST 2V FRONTAL/LAT - PREDNISONE 20 MG TABLET - ALBUTEROL SULFATE HFA 90 MCG/ACTUATION AEROSOL INHALER - BENZONATATE 100 MG CAPSULE Prescription instructions reviewed with patient as applicable. Patient advised if symptoms do not improve or if symptoms worsen sooner, to contact the office for further evaluation by their primary care physician. Potential red flag symptoms discussed with the patient. Reviewed appropriate action plan to take if red flag symptoms occur. Patient agreeable to treatment plan. Arthur Blount APRN.AUTOMATIC MACHINES SUPERVISOR Normal [facility] XR CHEST 2V FRONTAL/LATon XR CHEST 2V FRONTAL/LAT * * *Final Report* * * DATE OF EXAM: Apr 11 2019 12:30PM WOX [id number] - XR CHEST 2V FRONTAL/LAT / PROCEDURE REASON: Cough * * * * Physician Interpretation * * * * EXAMINATION: CHEST RADIOGRAPH (2 VIEW FRONTAL and LATERAL) CLINICAL HISTORY: Cough MQ: XC2_5 Comparison: None. RESULT: Lines, tubes, and devices: None. Lungs and pleura: No consolidation. No lung mass. No pleural effusion. Cardiomediastinal silhouette: Normal cardiomediastinal silhouette. Other: There are degenerative changes in the spine. IMPRESSION: No acute radiographic abnormality. Head Animal Trainer: EBONY Transcribe Date/Time: Apr 11 2019 12:35P Dictated by : JOS EVANS MD This examination was interpreted and the report reviewed and electronically signed by: JOS EVANS MD on Apr 11 2019 12:35PM EST [id number] Normal [facility] Vital Signs Date Time Vital Sign Value Performing Clinician Faci lity 09-05-2024 03:41-0500 Body temperature 98.24 [degF] LOUIS DYE AFFILIATE MANAGER-AUTOMATIC MACHINES SUPERVISOR [facility] 09-05-2024 03:41-0500 Diastolic Blood Pressure Non-Invasive 81 mm[Hg] LOUIS DEY AFFILIATE MANAGER-AUTOMATIC MACHINES SUPERVISOR [facility] 09-05-2024 03:41-0500 Heart rate 92 /min LOUIS DYE AFFILIATE MANAGER-AUTOMATIC MACHINES SUPERVISOR [facility] 09-05-2024 03:41-0500 Reason For Taking VItal Signs LOUIS DYE AFFILIATE MANAGER-AUTOMATIC MACHINES SUPERVISOR [facility] 09-05-2024 03:41-0500 Respiratory rate 18 /min LOUIS DYE AFFILIATE MANAGER-AUTOMATIC MACHINES SUPERVISOR [facility] 09-05-2024 03:41-0500 Systolic Blood Pressure Non-Invasive 124 mm[Hg] LOUIS DYE AFFILIATE MANAGER-AUTOMATIC MACHINES SUPERVISOR [facility] 09-04-2024 23:35-0500 Body temperature 98.96 [degF] LOUIS ISAKER AFFILIATE MANAGER-AUTOMATIC MACHINES SUPERVISOR [facility] 09-04-2024 23:35-0500 Diastolic Blood Pressure Non-Invasive 82 mm[Hg] LOUIS PARISIER AFFILIATE MANAGER-AUTOMATIC MACHINES SUPERVISOR [facility] 09-04-2024 23:35-0500 Heart rate 101 /min LOUIS KAPPER AFFILIATE MANAGER-AUTOMATIC MACHINES SUPERVISOR [facility] 09-04-2024 23:35-0500 Reason For Taking VItal Signs LOUIS PARISIER AFFILIATE MANAGER-AUTOMATIC MACHINES SUPERVISOR [facility] 09-04-2024 23:35-0500 Respiratory rate 18 /min LOUIS ISAKER AFFILIATE MANAGER-AUTOMATIC MACHINES SUPERVISOR [facility] 09-04-2024 23:35-0500 Systolic Blood Pressure Non-Invasive 136 mm[Hg] OLUIS ISAKER AFFILIATE MANAGER-AUTOMATIC MACHINES SUPERVISOR [facility] 09-04-2024 21:02-0500 Heart rate 95 /min LOUIS ISAKER AFFILIATE MANAGER-AUTOMATIC MACHINES SUPERVISOR [facility] 09-04-2024 21:02-0500 Respiratory rate 18 /min LOUIS ISAKER AFFILIATE MANAGER-AUTOMATIC MACHINES SUPERVISOR [facility] 09-04-2024 20:20-0500 Body temperature 99.68 [degF] LOUIS ISAKER AFFILIATE MANAGER-AUTOMATIC MACHINES SUPERVISOR [facility] 09-04-2024 20:20-0500 Diastolic Blood Pressure Non-Invasive 72 mm[Hg] LOUIS ISAKER AFFILIATE MANAGER-AUTOMATIC MACHINES SUPERVISOR [facility] 09-04-2024 20:20-0500 Systolic Blood Pressure Non-Invasive 118 mm[Hg] LOUIS KAPPER AFFILIATE MANAGER-AUTOMATIC MACHINES SUPERVISOR [facility] 09-04-2024 17:42-0500 Body height 162.6 cm LOUIS ISAKER AFFILIATE MANAGER-AUTOMATIC MACHINES SUPERVISOR [facility] 09-04-2024 17:42-0500 Body weight 66.5 kg LOUIS ISAKMITZI AFFILIATE MANAGER-AUTOMATIC MACHINES SUPERVISOR [facility] 09-04-2024 17:42-0500 Body weight 25.15 kg/m2 LOUIS DYE AFFILIATE MANAGER-AUTOMATIC MACHINES SUPERVISOR [facility] 09-04-2024 17:34-0500 Heart rate 102 /min LOUIS ISAKMITZI AFFILIATE MANAGER-AUTOMATIC MACHINES SUPERVISOR [facility] 09-04-2024 17:34-0500 Reason For Taking VItal Signs LOUIS HARDIK AFFILIATE MANAGER-AUTOMATIC MACHINES SUPERVISOR [facility] 09-04-2024 13:25-0500 Body weight 66.5 kg LOUIS HARDIK AFFILIATE MANAGER-AUTOMATIC MACHINES SUPERVISOR [facility] 05-26-2024 13:46-0400 Diastolic Blood Pressure Non-Invasive 84 mm[Hg] DR TITUS SIMMS DO [facility] 05-26-2024 13:46-0400 Heart rate 62 /min DR TITUS SIMMS DO [facility] 05-26-2024 13:46-0400 Respiratory rate 18 /min DR TITUS SIMMS DO [facility] 05-26-2024 13:46-0400 Systolic Blood Pressure Non-Invasive 121 mm[Hg] DR TITUS SIMMS DO [facility] 05-26-2024 12:10-0400 Body height 162.[address] TITUS SIMMS DO [facility] 05-26-2024 12:10-0400 Body temperature 97.7 [degF] DR TITUS SIMMS DO [facility] 05-26-2024 12:10-0400 Body weight [address] TITUS SIMMS DO [facility] 05-26-2024 12:10-0400 Diastolic Blood Pressure Non-Invasive 90 mm[Hg] DR TITUS SIMMS DO [facility] 05-26-2024 12:10-0400 Heart rate 87 /min DR TITUS SIMMS DO [facility] 05-26-2024 12:10-0400 Respiratory rate 18 /min DR TITUS SIMMS DO [facility] 05-26-2024 12:10-0400 Systolic Blood Pressure Non-Invasive 123 mm[Hg] DR TITUS SIMMS DO [facility] Encounters Encounter Date Encounter Type Care Provider Facility Start: 09-04-2024 End: 09-05-2024 Evaluation and management of inpatient LOUIS DYE AFFILIATE MANAGER-AUTOMATIC MACHINES SUPERVISOR [facility] Start: 05-26-2024 End: 05-26-2024 Emergency department patient visit DR TITUS SIMMS DO [facility] Procedures Date Procedure Procedure Detail Performing Clinician Abdominal hysterectomy DR STEVEN SIMMS DO Immunizations Immunization Date Immunization Notes Care Provider [facility] 07-04-2016 pneumococcal polysaccharide vaccine, 23 valent LOUIS DYE AFFILIATE MANAGER-AUTOMATIC MACHINES SUPERVISOR [facility] 03-12-2016 pneumococcal polysaccharide vaccine, 23 valent LOUIS DYE AFFILIATE MANAGER-AUTOMATIC MACHINES SUPERVISOR [facility] Payers Date Payer Category Payer Unknown [id number] 1980 Unknown [id number] 1980 Unknown [id number] Social History Date Type Detail Facility Tobacco smoking status Smokes to bacco daily (finding) [facility] Sex Assigned At Female [facility] Start: 09-04-2024 Tobacco smoking status Heavy t obacco smoker (finding) [facility] Functional Status Date Assessment Result Facility 09-05-2024 Functional Status Room check performed [facility] 09-04-2024 Functional Status [facility] 09-04-2024 Functional Status Positioning Repositions self [facility] 09-04-2024 Functional Status [facility] 09-04-2024 Functional Status Other: [id number] [facility] 05-26-2024 Functional Status Standard Safet y ID band on, Call device within reach, Bed in low position, Wheels locked, Upper/Half-Length side-rails up, Bedside Cart Locked, Safety level maintained [facility] Mental Status Date Assessment Result Facility 09-05-2024 Mental Status Orientation Oriented x 4 [facility] 09-04-2024 [facility] 09-[facility]24 Mental Status [facility] 05-26-2024 Mental Status Orientation Oriented x 4 [facility] Clinical Notes 05-26-2024 to 09-05-2024 Note Date & Type Note Facility 09-05-2024 Note . MICRO - Microbiology PROCEDURE: Legionella Urine Ag [*1] SOURCE: Urine BODY SITE: COLLECTED DATE/TIME: 09/04/2024 22:54 EST RECEIVED DATE/TIME: 09/05/2024 15:49 EST START DATE/TIME: 09/05/2024 15:49 EST FREE TEXT SOURCE: FINAL REPORTS Final Report [] Verified Date/Time/Personnel: 09/05/2024 16:06 EST Presumptive negative for L. pneumophila serogroup 1 antigen in urine, suggesting no recent or current infection. Legionnaire's disease cannot be ruled out since other serogroups and species may also cause disease. Performing Locations *1: This test was performed at: [address], [address] , [facility] 09-05-2024 Note . MICRO - Microbiology PROCEDURE: Streptococcus Pneumoniae Urine Antig [^1 *1] SOURCE: Urine BODY SITE: COLLECTED DATE/TIME: 09/04/2024 22:54 EST RECEIVED DATE/TIME: 09/05/2024 15:49 EST START DATE/TIME: 09/05/2024 15:49 EST FREE TEXT SOURCE: FINAL REPORTS Final Report [] Verified Date/Time/Personnel: 09/05/2024 16:06 EST Presumptive negative for pneumococcal pneumonia, suggesting no current or recent pneumococcal infection. Infection due to Strep pneumoniae cannot be ruled out since the antigen present in the sample may be below the detection limit of the test. Interpretive Data ^1: Streptococcus Pneumoniae Urine Antig This test has not been evaluated on patients taking antibiotics for greater than 24 hours or on patients who have recently completed an antibiotic regimen. The accuracy of this test has not been proven in young children. Performing Locations *1: This test was performed at: [address], [address] , [facility] 09-05-2024 Evaluation + Plan note Extrac jaime from: Title:History and Physical Author:LOUIS DYE APRN-AUTOMATIC MACHINES SUPERVISOR Date:09/05/24 1. Acute respiratory failure with hypoxia Acute, new onset possibly from viral illness vs pneumonia. Continue rocephin 1 gram IV daily and azithromycin 500 mg IV daily. Checked urine for legionella and strep pneumoniae - pending. Mycoplasma antibody - pending. Respiratory ID panel pending. Continue duoneb aerosols as needed and scheduled. Continue supplemental oxygen as needed to maintain oxygen saturations above 92%. Repeat CBC and BMP in the am. 2. Tobacco use Chronic, half pack per day history. Encouraged smoking cessation. May have nicotine patch daily. DVT prophylaxis with SCDs, ambulation. Code status: Full Code. Labs, diagnostic test and progress notes reviewed as noted in HPI. Plan of care discussed with patient. All questions answered. Patient verbalizes understanding and is agreeable with plan of care. This case was discussed with collaborating physician, Dr. Kb Nunez. 77 minutes spent reviewing past diagnostic tests, reviewing lab results, vital sign trends, medical history, reviewing medications and ordering home medications, examining patient, discussed plan of care with care team, collaborating with physician, and documenting in chart. Diagnostic Tests Pending * Mycoplasma Antibody 09/04/24 [facility] 12-03-2024 Note Date of Service 09/05/2024 Chief Complaint Complains of a cough and not feeling well for the past 3 days History of Present Illness Patient is a 44-year-old female, who follows with Abena Horta CNP with a past medical history significant for chronic pain, presented to [facility] emergency department yesterday with the chief complaint of a cough and not feeling well. She has a history of tobacco use and smokes about a half a pack per day currently. She states she has had cough, congestion, fevers, nausea, vomiting and diarrhea for about 6 days. Yesterday her cough was productive of a green to brown-colored mucus. She has been using Mucinex at home without only minimal improvement. She denies any chills, shortness of breath, chest pain, abdominal pain, or dysuria. In the emergency department, chest x-ray revealed no acute radiographic abnormalities. White blood cell count 16.0. CBC otherwise unremarkable. BMP significant for glucose 110. Lactic acid negative. COVID-19, RSV and Flu A and B negative. Patient was administered 1 gram ceftriaxone IV, 500 mg azithromycin IV and aerosol breathing treatments in the ED. The ED physician planned to discharge patienthomsara, however, her oxygen dropped to 84% on room air. The ED physician therefore recommended admission for further evaluation and treatment. Patient was transferred to medical surgical unit. We continued Rocephin 1 gram IV daily and azithromycin 500 mg IV daily. We will check urine for legionella an d strep pneumoniae. We will check mycoplasma antibody. Check respiratory ID panel. Continue duoneb aerosols as needed and scheduled. Continue supplemental oxygen as needed to maintain oxygen saturations above 92%. Repeat CBC and BMP in the am. Was notified upon arriving this morning that patient signed out AMA early this morning. This provider never saw patient. Review of Systems Review of Systems: Reviewed in detail, including general health, HEENT, cardiovascular, respiratory, gastrointestinal, genitourinary, endocrine, musculoskeletal, neurologic, vascular, skin, and psychiatric. All are negative except for those listed in the History of Present Illness. Physical Exam Vitals and Measurements T: 36.8 C (Oral) TMIN: 36.8 C (Oral) TMAX: 37.6 C (Oral) HR: 92 RR: 18 BP: 124/81 SpO2: 90% HT: 162.6 cm WT: 66.1 kg BMI: 25.15 Weight Current Weight Dosing Weight: 66.5 kg (09/04/24) Current Weight: 66.1 kg (09/05/24) Dosing Weight: 66.5 kg (09/04/24) Patient signed out AMA prior to this provider returning this morning so patient was never seen faceto face. Lab Results 09/04 16:30 WBC: 16.0 H Hgb: 13.4 Hct: 40.2 Platelet: 417 Neutrophil %: 76.6 H Glucose Level: 110 H Sodium Level: 137 Potassium Level: 3.8 BUN: 10 Creatinine Lvl (s): 0.65 Imaging Results and Diagnostics XR Chest 2 Views Result Date: September 04, 2024 Verified By: LORE ELENA, DAVIDE Riddle CLINICAL STATEMENT: IMPRESSION: No acute radiographic findings. Assessment/Plan 1. Acute respiratory failure with hypoxia Acute, new onset possibly from viral illness vs pneumonia. Continue rocephin 1 gram IV daily and azithromycin 500 mg IV daily. Checked urine for legionella and strep pneumoniae - pending. Mycoplasmaantibody - pending. Respiratory ID panel pending. Continue duoneb aerosols as needed and scheduled.Continue supplemental oxygen as needed to maintain oxygen saturations above 92%. Repeat CBC and BMPin the am. 2. Tobacco use Chronic, half pack per day history. Encouraged smoking cessation. May have nicotine patch daily. DVT prophylaxis with SCDs, ambulation. Code status: Full Code. Labs, diagnostic test and progress notes reviewed as noted in HPI. Plan of care discussed with patient. All questions answered. Patient verbalizes understanding and is agreeable with plan of care. This case was discussed with collaborating physician, Dr. Kb Nunez. 77 minutes spent reviewing past diagnostic tests, reviewing lab results, vital sign trends, medicalhistory, reviewing medications and ordering home medications, examining patient, discussed plan of care with care team, collaborating with physician, and documenting in chart. Procedure/Surgical History Abdominal hysterectomy Medications Home Medications (2) Active Azithromycin 5 Day Dose Pack 250 mg oral tablet Take two (2) tablets day 1-then one (1) tablet, Oral, Daily buprenorphine-naloxone 8 mg-2 mg sublingual film Allergies NKA Social History Smoking Status - 03/25/2015 Current every day smoker Home/Environment Living situation: Home/Independent. Domestic Concerns: None. Lives In: Multilevel home. Current Home Treatments None., 09/04/2024 Tobacco Nicotine Use: 10 or more cigarettes (1/2 pack or more)/day in last 30 days. Type: Cigarettes., 09/04/2024 Immunizations pneumococcal 23-valent vaccine(Pneumovax: 0 unknown unit (07/04/16) pneumococcal 23-valent vaccine(Pneumovax: 0 unknown unit (03/12/16) Code Status No qualifying data available. Digitally Signed by LOUIS DYE on 09/05/2024 08:08 AM Digitally Signed by LOUIS DYE on 09/05/2024 08:33 AM [facility]12-03-2024 Nurse Progress note Called by Eliana Sage RN about this patient wanting to leave AMA. Met with the patient. She is concernedabout her daughter being upset because she is home alone. Explained what is involved with leaving AMA. Pt is in agreement. Removed O2 and walked patient prior to leaving. Sats were 92% on RA before ambulation, dropped to 86% while ambulating and then increased to 90% after returning to sitting on the bed. Discussed these numbers are concerning. DIscussed using the IS every hour, calling her PCP to see if she can get in to see her today for antibiotic/inhaler possibly, and return to ED if difficulty breathing. Patient verbalizes understanding. Digitally Signed by Yudy Hammond RN on 09/05/2024 05:23 AM [facility]12-03-2024 Nurse Progress note Patient stated she wanted to leave to [place]admin[place] RIBEIRO at 0340. Padmini notified this RN. This RN spoke with patient about wanting to leave AMA. Patient states she has a 14 year old daughter at home that is concerned about her and a that had just left for work at 0330. She is worried about her daughter being home alone and requests to leave AMA. Patient states her car is in the parking lot and she is able to drive herself home. Yudy BRITO was notified and ANVILSMITH, Lindsey Iglesias was also notified. Patient is on 4L NC. Yudy BRITO did a room air trial with patient. While ambulating in hallway, patient was 86% and patient was 90% while sitting in bed. Patient was educated on importance of oxygen therapy. Patient adamantly requested to still leave AMA. Patient sent home with her incentive spirometer and encouraged to use it. Patient is on suboxone sublingual films, patient had brought in 2 filmsthat were placed in patient bin. 2 sublingual films were given back to patient. Yudy BRITO witnessed. Patient left AMA at 0420. Digitally Signed by Christy Sage RN on 09/05/2024 04:26 AM [facility]12-03-2024 Respiratory therapy Hospital Progress note Pt has been intermittently wearing 4L NC tonight Pt complains of general discomfort from nasal cannula and frequent coughing. Has been educated by RN, RT, and PCT about the dangers of low SpO2 levels Post education lecture, pt remains adamant about refusing to wear O2 consistently at this time Digitally Signed by Jillian Gabriel RT on 09/05/2024 12:02 AM [facility]12-02-2024 HCoV 229E RNA AYESHA+non-probe Ql (Nph) Not Detected *NA* (09/04/24 5:32 PM) Auto Viro/Sero [id number] Hospital Discharge instructions Patient Education 09/04/2024 15:12:23 URI, Viral W/ Wheezing (Adult) Viral Upper Respiratory Illness with Wheezing (Adult) You have a viral upper respiratory illness (URI), which is another term for the common cold. When the infection causes a lot of irritation, the air passages can go into spasm. This causes wheezing and shortness of breath. This illness is contagious during the first few days. It is spread through the air by coughing and sneezing. It may also be spread by direct contact. This could be by touching the sick person and then touching your own eyes, nose, or mouth. Frequent handwashing will decrease the risk. Most viral illnesses go away within 7 to 10 days with rest and simple home remedies. Sometimes the illness may last for several weeks. Antibiotics will not kill a virus, and they are generally not prescribed for this condition. Home care If symptoms are severe, rest at home for the first 2 to 3 days. When you resume activity, don't letyourself get too tired. If you smoke, stop. Ask your healthcare provider if you need help. Stay away from secondhand cigarette smoke. Don't let people smoke in your house or car. You may use acetaminophen or ibuprofen to control pain and fever, unless another medicine was prescribed. Take the medicine only as directed on the label. If you have chronic liver or kidney disease,have ever had a stomach ulcer or gastrointestinal bleeding, or are taking blood-thinning medicines,talk with your healthcare provider before using these medicines. Aspirin should never be given to anyone under 18 years of age who is ill with a viral infection or fever. It may cause severe liver orbrain damage. Your appetite may be poor, so a light diet is fine. Stay well hydrated by drinking 6 to 8 glasses of fluids per day (water, soft drinks, juices, tea, or soup). Extra fluids will help loosen secretions in the nose and lungs. Axjp-siz-oyhwnzh cold medicines will not shorten the length of time you re sick, but they may be helpful for the following symptoms: cough, sore throat, and nasal and sinus congestion. Ask your healthcare provider or pharmacist which pafd-okn-biryofp medicine to use. Don't use decongestants if you have high blood pressure. Follow-up care Follow up with your healthcare provider, or as advised. When to seek medical advice Call your healthcare provider right away if any of these occur: Cough with lots of colored sputum (mucus) Severe headache; face, neck, or ear pain Difficulty swallowing due to throat pain Fever of 100.4 F (38 C) or higher, or as directed by your healthcare provider Call 911 Call 911 if any of these occur: Chest pain, shortness of breath, worsening wheezing, or difficulty breathing Coughing up blood Very severe pain when swallowing, especially if it goes along with a muffled voice [phone] [employer]. [address] [place] [address]. All rights reserved. This information is not intended as a substitute for professional medical care. Always follow yourhealthcare professional's instructions. Follow Up Care 09/04/2024 13:43:23 With:ABENA HORTA Address: [place] [address] [phone] When:2-4 days [facility] 12-02-2024 Note Discharge Instructions Thank you for allowing [facility] to assist you with your healthcare needs. The following is importantdischarge information regarding your hospital visit. Diagnosis from Today's Visit Viral URI with cough What to Do Next Instructions from Your Care Team No qualifying data available. Post Acute Orders No qualifying data available. You Need to Schedule the Following Appointments Follow Up with ABENA HORTA When:Within 2-4 days Where:[place] [address] [phone] Allergies NKA Medications Please ask your primary doctor or pharmacist before taking any other medication not listed, including over the counter drugs, herbal medications, vitamins and or supplements as they may interact withyour home medications. What How Much When Instructions Last Dose New azithromycin (Azithromycin 5 Day Dose Pack 250 mg oral tablet) Take two (2) tablets day 1-then one (1) tablet by mouth Every day Duration: 5 Days Printed Prescription Unchanged buprenorphine-naloxone (buprenorphine-naloxone 8 mg-2 mg sublingual film) dissolve 1 and 1/ 2 FILMS under the tongue once daily for 30 DAYS Please take this list to your next doctor s visit. Bring all medications you take, including over the counter medications, herbals and other supplements with you to your doctor s visit. Patients and families are reminded to discard old lists and to update any records with all medication providers or retail pharmacies. Medication Leaflets azithromycin (oral/injection) (a YUNIOR EDMOND sin) Azithromycin 3 Day Dose Pack, Azithromycin 5 Day Dose Pack, Zithromax, Zithromax IV, Zithromax TRI-KEVIN, Zithromax Z-Kevin What is the most important information I should know about azithromycin? You should not use azithromycin if you have ever had an allergic reaction, jaundice, or liver problems while taking this medicine. You should not use azithromycin if you have ever had a severe allergic reaction to similar drugs such as clarithromycin, erythromycin, or telithromycin. What is azithromycin? Azithromycin is used to treat many different types of infections caused by bacteria, including infections of the lungs, sinus, throat, tonsils, skin, urinary tract, cervix, or genitals. Azithromycin may also be used for purposes not listed in this medication guide. What should I discuss with my healthcare provider before using azithromycin? You should not use azithromycin if you are allergic to it, or if you have ever had: jaundice or liver problems caused by taking azithromycin; or a severe allergic reaction to similar drugs such as clarithromycin, erythromycin, or telithromycin. Azithromycin oral should not be used to treat pneumonia in people who have: cystic fibrosis; an infection after being in a hospital; an infection in the blood; a weak immune system (caused by diseases such as HIV/AIDS or cancer); or in older adults and those who are ill or debilitated. Tell your doctor if you have ever had: pneumonia; liver or kidney disease; myasthenia gravis; low levels of potassium in your blood; a heart rhythm disorder; or long QT syndrome (in you or a family member). It is not known whether this medicine is effective in treating genital ulcers in women. Tell your doctor if you are or . Taking azithromycin while may cause diarrhea, vomiting, or rash in the nursing baby. Azithromycin is not approved for use by anyone younger than 6 months old. Azithromycin should not be used to treat a throat or tonsil infection in a child younger than 2 years old. How should I take azithromycin? Follow all directions on your prescription label and read all medication guides or instruction sheets. Use the medicine exactly as directed. Azithromycin oral is taken by mouth. Azithromycin injection is given as an infusion into a vein, usually for 2 days before you switch to azithromycin oral. A healthcare provider will give you this injection. You may take azithromycin oral with or without food. Shake the oral suspension (liquid) before you measure a dose. Use the dosing syringe provided, or use a medicine dose-measuring device (not a kitchen spoon). Use this medicine for the full prescribed length of time, even if your symptoms quickly improve. Skipping doses can increase your risk of infection that is resistant to medication. Azithromycin will not treat a viral infection such as the flu or a common cold. Store at room temperature away from moisture and heat. Throw away any unused liquid medicine after 10 days. What happens if I miss a dose? Take the medicine as soon as you can, but skip the missed dose if it is almost time for your next dose. Do not take two doses at one time. What happens if I overdose? Seek emergency medical attention or call the Poison Help line at . What should I avoid while taking azithromycin? Antibiotic medicines can cause diarrhea, which may be a sign of a new infection. If you have diarrhea that is watery or bloody, call your doctor before using anti-diarrhea medicine. Azithromycin could make you sunburn more easily. Avoid sunlight or tanning beds. Wear protective clothing and use sunscreen (SPF 30 or higher) when you are outdoors. What are the possible side effects of azithromycin? Get emergency medical help if you have signs of an allergic reaction (hives, difficult breathing, swelling in your face or throat) or a severe skin reaction (fever, sore throat, burning in your eyes,skin pain, red or purple skin rash that spreads and causes blistering and peeling). Seek medical treatment if you have a serious drug reaction that can affect many parts of your body.Symptoms may include: skin rash, fever, swollen glands, muscle aches, severe weakness, unusual bruising, or yellowing of your skin or eyes. Call your doctor at once if you have: severe stomach pain, diarrhea that is watery or bloody; fast or pounding heartbeats, fluttering in your chest, shortness of breath, and sudden dizziness (like you might pass out); or liver problems--nausea, vomiting, loss of appetite, stomach pain (upper right side), tiredness, itching, dark urine, mj-colored stools, jaundice (yellowing of the skin or eyes); Call your doctor right away if a baby taking azithromycin becomes irritable or vomits while eating or nursing. Older adults may be more likely to have side effects on heart rhythm, including a life-threatening fast heart rate. Common side effects may include: nausea, vomiting; or stomach pain. This is not a complete list of side effects and others may occur. Call your doctor for medical advice about side effects. You may report side effects to FDA at 7-639-HCP-5367. What other drugs will affect azithromycin? Tell your doctor about all your other medicines, especially: colchicine; digoxin; nelfinavir; phenytoin; an antacid that contains aluminum or magnesium--Acid Gone, Gaviscon, Gelusil, Maalox, Milk of Magnesia, Mylanta, Pepcid Complete, Rolaids, Rulox, and others; or a blood thinner--warfarin, Coumadin, Jantoven. This list is not complete. Other drugs may affect azithromycin, including prescription and izdg-ifq-vqaxbhh medicines, vitamins, and herbal products. Not all possible drug interactions are listed here. Where can I get more information? Your pharmacist can provide more information about azithromycin. Remember, keep this and all other medicines out of the reach of children, never share your medicines with others, and use this medication only for the indication prescribed. Every effort has been made to ensure that the information provided by [employer]. ('[employer]') is accurate, up-to-date, and complete, but no guarantee is made to that effect. Drug information contained herein may be time sensitive. [employer] information has been compiled for use by healthcare practitioners and consumers in the [place] and therefore [employer] does not warrant that uses outside of the [place] are appropriate, unless specifically indicated otherwise. [employer] drug information does not endorse drugs, diagnose patients or recommend therapy. [employer] drug information isan informational resource designed to assist licensed healthcare practitioners in caring for their p atients and/or to serve consumers viewing this service as a supplement to, and not a substitute for, the expertise, skill, knowledge and judgment of healthcare practitioners. The absence of a warningfor a given drug or drug combination in no way should be construed to indicate that the drug or drug combination is safe, effective or appropriate for any given patient. [employer] does not assume any responsibility for any aspect of healthcare administered with the aid of information [employer] provides. The information contained herein is not intended to cover all possible uses, directions, precautions, warnings, drug interactions, allergic reactions, or adverse effects. If you have questions about the drugs you are taking, check with your doctor, nurse or pharmacist. Copyright 7395-9943 [employer]. Version: 18.01. Revision Date: 02/02/2019. Education Materials Viral Upper Respiratory Illness with Wheezing (Adult) You have a viral upper respiratory illness (URI), which is another term for the common cold. When the infection causes a lot of irritation, the air passages can go into spasm. This causes wheezing and shortness of breath. This illness is contagious during the first few days. It is spread through the air by coughing and sneezing. It may also be spread by direct contact. This could be by touching the sick person and then touching your own eyes, nose, or mouth. Frequent handwashing will decrease the risk. Most viral illnesses go away within 7 to 10 days with rest and simple home remedies. Sometimes the illness may last for several weeks. Antibiotics will not kill a virus, and they are generally not prescribed for this condition. Home care If symptoms are severe, rest at home for the first 2 to 3 days. When you resume activity, don't letyourself get too tired. If you smoke, stop. Ask your healthcare provider if you need help. Stay away from secondhand cigarette smoke. Don't let people smoke in your house or car. You may use acetaminophen or ibuprofen to control pain and fever, unless another medicine was prescribed. Take the medicine only as directed on the label. If you have chronic liver or kidney disease,have ever had a stomach ulcer or gastrointestinal bleeding, or are taking blood-thinning medicines,talk with your healthcare provider before using these medicines. Aspirin should never be given to anyone under 18 years of age who is ill with a viral infection or fever. It may cause severe liver orbrain damage. Your appetite may be poor, so a light diet is fine. Stay well hydrated by drinking 6 to 8 glasses of fluids per day (water, soft drinks, juices, tea, or soup). Extra fluids will help loosen secretions in the nose and lungs. Ghyl-esu-qtfpcrx cold medicines will not shorten the length of time you re sick, but they may be helpful for the following symptoms: cough, sore throat, and nasal and sinus congestion. Ask your healthcare provider or pharmacist which fxtu-nkl-lkmidlj medicine to use. Don't use decongestants if you have high blood pressure. Follow-up care Follow up with your healthcare provider, or as advised. When to seek medical advice Call your healthcare provider right away if any of these occur: Cough with lots of colored sputum (mucus) Severe headache; face, neck, or ear pain Difficulty swallowing due to throat pain Fever of 100.4 F (38 C) or higher, or as directed by your healthcare provider Call 911 Call 911 if any of these occur: Chest pain, shortness of breath, worsening wheezing, or difficulty breathing Coughing up blood Very severe pain when swallowing, especially if it goes along with a muffled voice [id number] [employer]. [address] [place] [address]. All rights reserved. This information is not intended as a substitute for professional medical care. Always follow yourhealthcare professional's instructions. Additional Information VACCINATE! IT SAVES LIVES! Members of the community who have not yet received the COVID-19 vaccine and would like to receive it can visit one of [facility] vaccine clinics. There are many vaccine clinic locations within the [facility]. For locations and available times, please visit [email or web address] It is important to note that some COVID mobile vaccine clinics are held outdoors and may be canceled in rainy or stormy conditions. To learn more about pediatric vaccinations (ages 5-11), we invite you to visit the [facility] webpage. [email or web address]/[email or web address]-[email or web address]-[email or web address] stions.htmlTo learn more about the COVID-19 vaccine, we invite you to visit the CDC website for a list of frequently asked questions. https://www.cdc.gov/coronavirus/2019-ncov/vaccines/faq.html [facility] Patient Portal Access Instructions: Stay connected with your healthcare team and access your personal medical information anytime with the [facility] Patient Portal. If you would like a full copy of your medical records please contact the [facility] Medical Records Department Wednesday through Wednesday between 8a.m. and 4:30p.m. Please follow the directions below to access the portal: 1.Access the email account you provided upon registration to the [facility].2.Look for an invitation email from [facility].3.Open the email and access the invitation link: Accept Invitation to [facility].Fill in the required wilson to create your account. Sign into [email or web address].[employer] with your username and password that you created in the above steps to stay up to date. You can then view a summary of results, a summary of your visits, and the ability to download your summaries to your computer or send the information securely to a physician. Remember that your healthcare information is confidential, so carefully consider who you will allow to register on the [facility] Patient Portal for access to your information. You can also access the [facility] Patient Portal on the [facility]. Simply click on "Health Records" under "[employer]" and then click on the [employer] logo. HOW TO SAFELY DISPOSE OF PRESCRIPTION MEDICATIONS Please use one of the following methods to safely dispose of your unused medications. 1.Use a drug disposal kit: the drug disposal pouch allows you to safely discard your old and unuseddrugs. Ask your nurse to give you one when you are discharged.2.Visit a local take-back location: Many local pharmacies and police departments have programs that collect old and unwanted prescriptiondrugs. Call your local pharmacy or go to [email or web address] to find one close to you.3.Make use of household items: Use cat litter or old coffee grounds to dispose medications if other options arenot available. Mix your drugs with these household products, seal them in an airtight container andthrow it into the garbage. Call [facility]: [phone] to be sure your drugs can be disposed of in this way. Some medicines may require a different approach.4.Never flush your medications down the toilet. IF YOU HAVE BEEN PRESCRIBED AN OPIOIDS FOR PAIN If you have been prescribed an opioid (such as hydrocodone, oxycodone or morphine), it is critical to understand the possible side effects and risks of opioid pain medications. Even when taken as directed, opioids can have several side effects including: Tolerance, meaning you might need to take more of a medication for the same pain relief. Nausea, vomiting and/or constipation. Sleepiness, dizziness, dry mouth, confusion, depression or itching. Physical dependence, meaning you have withdrawal symptoms when a medication is stopped ? this can develop within a few days. KNOW YOUR RESPONSIBILITIES It is important to know exactly how much and how often to take the opioid pain medications you are prescribed. Never take opioids in higher amounts or more often than prescribed. Do not combine opioids with alcohol or other drugs that cause drowsiness, such as benzodiazepines, also known as benzos,including diazepam and alprazolam, muscle relaxants or sleep aids. Never sell or share prescriptionopioids. This is illegal. Store opioids in a secure place and out of reach of others (including children, family, friends and visitors). The last page(s) of this document has been signed and retained as a CHART COPY Signatures Patient Education Materials URI, Viral W/ Wheezing (Adult) Medication Leaflets azithromycin (oral/injection) My discharge plan and instructions have been reviewed and explained to me and I,ANALISA DAMONd my current condition and have read and understand these discharge instructions. I have received a written copy of the plan/instructions. If I have questions, I am aware that I should contact my doctor. Patient/Verifying Specialist Signature: Date/Time: Relationship to Patient: Witness Name/Signature: Date/Time: [facility]12-02-2024 Note ORIGINAL EXAMINATION: TWO XRAY VIEWS OF THE CHEST09/04/2024 2:06 pm COMPARISON: None HISTORY: ORDERING SYSTEM PROVIDED HISTORY: Reason for Exam: cough FINDINGS: The heart size is normal. There is no pulmonary consolidation. No pneumothorax or pleural effusion. No aggressive osseous lesions identified.Spurring seen in the spine. IMPRESSION: No acute radiographic findings. Interpreted by: Davide Corbin MD Preliminary Report By: Davide Corbin MD Electronically signed By Davide Corbin MD Dictated Date: 09/04/2024 2:12:30 PM Prelim Date: 09/04/2024 2:13:13 PM Sign Date: 09/04/2024 2:13:13 PM [facility] [id number] Hospital Discharge instructions Patient Education 05/26/2024 13:55:24 Bronchitis, Antibiotic Treatment (Adult) Bronchitis, Antibiotic Treatment (Adult) Bronchitis is an infection of the air passages (bronchial tubes) in your lungs. It often occurs when you have a cold. This illness is contagious during the first few days and is spread through the air by coughing and sneezing, or by direct contact (touching the sick person and then touching your own eyes, nose, or mouth). Symptoms of bronchitis include cough with mucus (phlegm) and low-grade fever. Bronchitis usually lasts 7 to 14 days. Mild cases can be treated with simple home remedies. More severe infection is treated with an antibiotic. Home care Follow these guidelines when caring for yourself at home: If your symptoms are severe, rest at home for the first 2 to 3 days. When you go back to your usualactivities, don't let yourself get too tired. Don't smoke. Also stay away from secondhand smoke. You may use ncrk-zms-lxevcye medicines to control fever or pain, unless another medicine was prescribed. If you have chronic liver or kidney disease or have ever had a stomach ulcer or gastrointestinal bleeding, talk with your healthcare provider before using these medicines. Also talk to your provider if you are taking medicine to prevent blood clots. Aspirin should never be given to anyone younger than 18 who is ill with a viral infection or fever. It may cause severe liver or brain damage. Your appetite may be low, so a light diet is fine. Stay well hydrated by drinking 6 to 8 glasses offluids per day. This includes water, soft drinks, sports drinks, juices, tea, or soup. Extra fluidswill help loosen mucus in your nose and lungs. Jfzu-paz-twrtvik cough, cold, and sore-throat medicines will not shorten the length of the illness,but they may be helpful to reduce your symptoms. Don't use decongestants if you have high blood pressure. Finish all antibiotic medicine. Do this even if you are feeling better after only a few days. Follow-up care Follow up with your healthcare provider, or as advised. If you had an X-ray or ECG (electrocardiogram), a specialist will review it. You will be told of any new test results that may affect your care. If you are age 65 or older, if you smoke, or if you have a chronic lung disease or condition that affects your immune system, ask your healthcare provider about getting a pneumococcal vaccine and a yearly flu shot (influenza vaccine). When to seek medical advice Call your healthcare provider right away if any of these occur: Fever of 100.4 F (38 C) or higher, or as directed by your healthcare provider Coughing up more sputum Weakness, drowsiness, headache, facial pain, ear pain, or a stiff neck Call 911 Call 911 if any of these occur. Coughing up blood Weakness, drowsiness, headache, or stiff neck that get worse Trouble breathing, wheezing, or pain with breathing [id number] [employer]. [address] [place] [address]. All rights reserved. This information is not intended as a substitute for professional medical care. Always follow yourhealthcare professional's instructions. Follow Up Care 05/26/2024 11:52:19 With:ABENA HORTA Address: [address] [place] [address]- [phone] When:2-4 days [facility] 08-23-2024 Emergency department Discharge summary Discharge Instructions Thank you for allowing [facility] to assist you with your healthcare needs. The following is importantdischarge information regarding your hospital visit. Diagnosis from Today's Visit Bronchitis What to Do Next Instructions from Your Care Team No qualifying data available. Post Acute Orders No qualifying data available. You Need to Schedule the Following Appointments Follow Up with ABENA HORTA When:Within 2-4 days Where:[place] [address]- [phone] Allergies NKA Medications Please ask your primary doctor or pharmacist before taking any other medication not listed, including over the counter drugs, herbal medications, vitamins and or supplements as they may interact withyour home medications. What How Much When Instructions Last Dose New azithromycin (Azithromycin 5 Day Dose Pack 250 mg oral tablet) 1 dose by mouth Every day Duration: 5 Days Printed Prescription New guaiFENesin (Mucinex 600 mg oral tablet, extended release) 1 tab(s) by mouth Every 12 hours Duration: 7 Days Printed Prescription Please take this list to your next doctor s visit. Bring all medications you take, including over the counter medications, herbals and other supplements with you to your doctor s visit. Patients and families are reminded to discard old lists and to update any records with all medication providers or retail pharmacies. Education Materials Bronchitis, Antibiotic Treatment (Adult) Bronchitis is an infection of the air passages (bronchial tubes) in your lungs. It often occurs when you have a cold. This illness is contagious during the first few days and is spread through the air by coughing and sneezing, or by direct contact (touching the sick person and then touching your own eyes, nose, or mouth). Symptoms of bronchitis include cough with mucus (phlegm) and low-grade fever. Bronchitis usually lasts 7 to 14 days. Mild cases can be treated with simple home remedies. More severe infection is treated with an antibiotic. Home care Follow these guidelines when caring for yourself at home: If your symptoms are severe, rest at home for the first 2 to 3 days. When you go back to your usualactivities, don't let yourself get too tired. Don't smoke. Also stay away from secondhand smoke. You may use wckc-kqg-qfejcqc medicines to control fever or pain, unless another medicine was prescribed. If you have chronic liver or kidney disease or have ever had a stomach ulcer or gastrointestinal bleeding, talk with your healthcare provider before using these medicines. Also talk to your provider if you are taking medicine to prevent blood clots. Aspirin should never be given to anyone younger than 18 who is ill with a viral infection or fever. It may cause severe liver or brain damage. Your appetite may be low, so a light diet is fine. Stay well hydrated by drinking 6 to 8 glasses offluids per day. This includes water, soft drinks, sports drinks, juices, tea, or soup. Extra fluidswill help loosen mucus in your nose and lungs. Nque-atl-ksqnjik cough, cold, and sore-throat medicines will not shorten the length of the illness,but they may be helpful to reduce your symptoms. Don't use decongestants if you have high blood pressure. Finish all antibiotic medicine. Do this even if you are feeling better after only a few days. Follow-up care Follow up with your healthcare provider, or as advised. If you had an X-ray or ECG (electrocardiogram), a specialist will review it. You will be told of any new test results that may affect your care. If you are age 65 or older, if you smoke, or if you have a chronic lung disease or condition that affects your immune system, ask your healthcare provider about getting a pneumococcal vaccine and a yearly flu shot (influenza vaccine). When to seek medical advice Call your healthcare provider right away if any of these occur: Fever of 100.4 F (38 C) or higher, or as directed by your healthcare provider Coughing up more sputum Weakness, drowsiness, headache, facial pain, ear pain, or a stiff neck Call 911 Call 911 if any of these occur. Coughing up blood Weakness, drowsiness, headache, or stiff neck that get worse Trouble breathing, wheezing, or pain with breathing [id number] [employer]. [address] [place] [address]. All rights reserved. This information is not intended as a substitute for professional medical care. Always follow yourhealthcare professional's instructions. Additional Information VACCINATE! IT SAVES LIVES! Members of the community who have not yet received the COVID-19 vaccine and would like to receive it can visit one of [facility] vaccine clinics. There are many vaccine clinic locations within the [facility]. For locations and available times, please visit [email or web address] It is important to note that some COVID mobile vaccine clinics are held outdoors and may be canceled in rainy or stormy conditions. To learn more about pediatric vaccinations (ages 5-11), we invite you to visit the [facility] webpage. [email or web address]/[email or web address] learn more about the COVID-19 vaccine, we invite you to visit the CDC website for a list of frequently asked questions. https://www.cdc.gov/coronavirus/2019-ncov/vaccines/faq.html [facility] Patient Portal Access Instructions: Stay connected with your healthcare team and access your personal medical information anytime with the [facility] Patient Portal. If you would like a full copy of your medical records please contact the [facility] Medical Records Department Wednesday through Wednesday between 8a.m. and 4:30p.m. Please follow the directions below to access the portal: 1.Access the email account you provided upon registration to the hospital.2.Look for an invitation email from [facility].3.Open the email and access the invitation link: [facility] to [facility].Fill in the required wilson to create your account. Sign into [email or web address] with your username and password that you created in the above steps to stay up to date. You can then view a summary of results, a summary of your visits, and the ability to download your summaries to your computer or send the information securely to a physician. Remember that your healthcare information is confidential, so carefully consider who you will allow to register on the [facility] Patient Portal for access to your information. You can also access the [facility] Patient Portal on the [facility]. Simply click on "Health Records" under "HealthData" and then click on the [facility] logo. HOW TO SAFELY DISPOSE OF PRESCRIPTION MEDICATIONS Please use one of the following methods to safely dispose of your unused medications. 1.Use a drug disposal kit: the drug disposal pouch allows you to safely discard your old and unuseddrugs. Ask your nurse to give you one when you are discharged.2.Visit a local take-back location: Many local pharmacies and police departments have programs that collect old and unwanted prescriptiondrugs. Call your local pharmacy or go to http://bit.BECC/0G7Nl2q to find one close to you.3.Make use of household items: Use cat litter or old coffee grounds to dispose medications if other options arenot available. Mix your drugs with these household products, seal them in an airtight container andthrow it into the garbage. Call [facility]: [phone] to be sure your drugs can be disposed of in this way. Some medicines may require a different approach.4.Never flush your medications down the toilet. IF YOU HAVE BEEN PRESCRIBED AN OPIOIDS FOR PAIN If you have been prescribed an opioid (such as hydrocodone, oxycodone or morphine), it is critical to understand the possible side effects and risks of opioid pain medications. Even when taken as directed, opioids can have several side effects including: Tolerance, meaning you might need to take more of a medication for the same pain relief. Nausea, vomiting and/or constipation. Sleepiness, dizziness, dry mouth, confusion, depression or itching. Physical dependence, meaning you have withdrawal symptoms when a medication is stopped ? this can develop within a few days. KNOW YOUR RESPONSIBILITIES It is important to know exactly how much and how often to take the opioid pain medications you are prescribed. Never take opioids in higher amounts or more often than prescribed. Do not combine opioids with alcohol or other drugs that cause drowsiness, such as benzodiazepines, also known as benzos,including diazepam and alprazolam, muscle relaxants or sleep aids. Never sell or share prescriptionopioids. This is illegal. Store opioids in a secure place and out of reach of others (including children, family, friends and visitors). The last page(s) of this document has been signed and retained as a CHART COPY Signatures Patient Education Materials Bronchitis, Antibiotic Treatment (Adult) Medication Leaflets My discharge plan and instructions have been reviewed and explained to me and I,ANALISA DAMONd my current condition and have read and understand these discharge instructions. I have received a written copy of the plan/instructions. If I have questions, I am aware that I should contact my doctor. Patient/Verifying Specialist Signature: Date/Time: Relationship to Patient: Witness Name/Signature: Date/Time: [facility]08-23-2024 Note ORIGINAL EXAMINATION: CTA OF THE CHEST05/26/2024 1:00 pm CTA CHEST WITH CONTRAST TECHNIQUE: CTA of the chest was performed after the administration of intravenous contrast. Multiplanar reformatted images are provided for review. MIP images are provided for review. Automated exposure control, iterative reconstruction, and/or weight based adjustment of the mA/kV was utilized to reduce the radiation dose to as low as reasonably achievable. CTA of the thorax was acquired in the axial plane. Coronal and sagittal reformatted images were reviewed. Three dimensional reconstructions were created on a separate workstation. COMPARISON: None HISTORY: ORDERING SYSTEM PROVIDED HISTORY: Reason for Exam: chest pain; suspect PE FINDINGS: No filling defects seen in the pulmonary arteries. The heart size is normal; no pericardial effusion. There are no pathologically enlarged axillary, mediastinal or hilar lymph nodes. Calcified granuloma seen in the subcarinal space and left hilum. The aorta is normal in caliber. Bronchial wall thickening and multifocal mucous plugging visualized. No pulmonary consolidation identified. Calcified lymph nodes seen in the left lower lobe. There is a the 3 mm nodule along the left major fissure on image 78. There is no pleural effusion or pneumothorax. No aggressive osseous lesions seen. Multilevel Schmorl node deformities. Multilevel degenerative changes. The upper abdomen is not evaluated in detail. No suspicious findings seen in the visualized portion of the abdomen. Suspected intracapsular ruptures of the breast prostheses IMPRESSION: 1. No evidence of pulmonary embolism. 2. Bronchial wall thickening and multifocal mucous plugging. Correlate for bronchitis. 3. Suspected intracapsular ruptures of the breast prostheses. 4. Other incidental findings, as above. RECOMMENDATIONS: Left solid pulmonary nodule measuring 3 mm. Per Fleischner Society Guidelines, no routine follow-up imaging is recommended. These guidelines do not apply to immunocompromised patients and patients with cancer. Follow up in patients with significant comorbidities as clinically warranted. For lung cancer screening, adhere to Lung-RADS guidelines. Reference: Radiology. 2017; 284(1):228-43. Interpreted by: Davide Corbin MD Preliminary Report By: Davide Corbin MD Electronically signed By Davide Corbin MD Dictated Date: 05/26/2024 1:04:08 PM Prelim Date: 05/26/2024 1:09:06 PM Sign Date: 05/26/2024 1:09:06 PM [facility] Sinus rhythm Electronic Signature: TITUS SIMMS DO 05/26/2024 12:36:[address] [place] [address] Evaluation + Plan note No data available for this section [facility] Summary Purpose Family History No Family History Records Found No data available for this section No Family History Records Found No data available for this section No Family History Records Found Advance Directives No Advanced Directives Records FoundNo Advanced Directives Records FoundNo Advanced Directives Records Found Additional Source Comments INFORMATION SOURCE (unrecogn ized section and content) DATE CREATED AUTHOR 11/09/2019 [facility] DATE CREATED AUTHOR AUTHOR'S ORGANIZ ATION 05/29/2024 [facility] ([place]) DATE CREATED AUTHOR AUTHOR'S ORGANIZ ATION 09/14/2024 [facility] Patient Care team informatio n (unrecognized section and content) Care Team Personnel Name: ABENA HORTA APRN-AUTOMATIC MACHINES SUPERVISOR Position: P4 Advanced Benefits Administrator Member Role: Primary Care Physician Address: Address: [address] [address]- Care Team Related Persons Name: SHEELA PRYOR Name: SHEELA PRYOR Name: SHEELA PRYOR Care Team Personnel Name: ABENA HORTA AFFILIATE MANAGER-AUTOMATIC MACHINES SUPERVISOR Position: P4 Advanced Benefits Administrator Member Role: Primary Care Physician Address: Address: [address] Care Team Related Persons Name: SHEELA PRYOR Name: SHEELA PRYOR Name: SHEELA PRYOR FOR RECORDS PERTAINING TO PATIENTS WHO ARE OR HAVE BEEN ENROLLED IN A CHEMICAL DEPENDENCY/SUBSTANCEABUSE PROGRAM, SOME INFORMATION MAY BE OMITTED. This clinical summary was aggregated from multiple sources. Caution should be exercised in using it in the provision of clinical care. This summary normalizes information from multiple sources, and as a consequence, information in this document may materially change the coding, format and clinical context of patient data. In addition, data may be omitted in some cases. CLINICAL DECISIONS SHOULD BE BASED ON THE PRIMARY CLINICAL RECORDS. [facility]. provides no warranty or guarantee of the accuracy or completeness of information in this document.
== END 2025-08-17 16:56 | disposition home or self-care (01) ==
PROVIDERS: Emergency Provider Student in an Organized Health Care Education/Training Program; Visit Provider Student in an Organized Health Care Education/Training Program
DX: S61.251A Open bite of left index finger without damage to nail, initial encounter (principal); I10 Essential (primary) hypertension; F17.210 Nicotine dependence, cigarettes, uncomplicated; L03.012 Cellulitis of left finger; W55.01XA Bitten by cat, initial encounter
CPT/HCPCS: 80048; 83605; 85025; 96365; 99284; A4216; J0295

== ENCOUNTER → 2025-08-17 | Outpatient (CLI) | payer OTHER, SELFPAY ==
--- NOTE | 2025-08-17 15:05 | RAD_ITS ---
PROCEDURE: FINGER(S) MIN 2 VIEWS 08/17/2025 REASON FOR EXAM: CELLULITIS FROM CAT BITE TECHNIQUE: Procedure Code: RADFIN Modality: DX Procedure: FINGER(S) MIN 2 VIEWS Laterality: Left index finger. COMPARISON: None FINDINGS: Bones: Unremarkable Joints: Unremarkable Soft tissues: Soft tissue swelling Other: RAD/Finger(s) Min 2 Views IMPRESSION: Soft tissue swelling. No radiopaque foreign body is seen. Reading Location: [facility]-
== END | disposition home or self-care (01) ==
LOC: RAD 14:35
DX: L03.114 Cellulitis of left upper limb (principal); S61.452A Open bite of left hand, initial encounter; W55.01XA Bitten by cat, initial encounter
CPT/HCPCS: 73140